=== PATIENT | female | born 1955 | race Caucasian/White ===

== ENCOUNTER 2020-05-20 10:43 | Emergency (ER) | payer OTHER ==
[2020-05-20 10:52] VITALS: BP 115/78; PULSE 96; TEMP 98; BMI 15.7
== END 2020-05-20 12:59 | disposition home or self-care (01) ==
LOC: JERFT 10:43
PROC: 2W3TX1Z Immobilization of Left Foot using Splint (ICD-10-PCS; principal; 2020-05-20)
DX: S82.392A Other fracture of lower end of left tibia, initial encounter for closed fracture (principal)
CPT/HCPCS: 73590-TC-LT-FY; 73610-TC-LT-FY; 73630-TC-LT; 99284-25

== ENCOUNTER 2020-05-22 10:52 | Inpatient (IN) | payer OTHER ==
[2020-05-22 10:58] VITALS: BMI 15.3
[2020-05-22 14:37] LABS: BASO % 0.9 % (0-2.0); EOS % 1.5 % (0-4.5); HEMATOCRIT 37.2 % (32.4-45.2); LYMPH % 19.9 % (8-40); MCH 35.4 pg (25.7-33.7); MCHC 34.9 g/dl (32.0-36.0); MEAN CELL VOLUME 101.4 fl (80-96); MEAN PLT VOLUME 8.1 fl (7.5-11.1); MONO % 7.3 % (3.8-10.2); NEUT % 70.4 % (42.8-82.8); PLATELET COUNT 185 K/MM3 (134-434); RBC 3.67 M/mm3 (3.60-5.2); RDW 14.6 % (11.6-15.6); WHITE BLOOD COUNT 6.7 K/mm3 (4.0-10.0)
[2020-05-22 14:56] LABS: CALCIUM 8.5 mg/dL (8.5-10.1)
[2020-05-22 14:57] LABS: ALBUMIN 2.7 g/dl (3.4-5.0); BLOOD UREA NITROGEN 12.4 mg/dL (7-18)
[2020-05-22 15:00] LABS: CREATININE 0.4 mg/dL (0.55-1.3)
[2020-05-22 15:01] LABS: BILIRUBIN,TOTAL 0.5 mg/dL (0.2-1); TOT PROT 5.4 g/dl (6.4-8.2)
[2020-05-22] MEDS ORDERED: POTASSIUM CHLORIDE TABS 10 MEQ TABLET.ER (FP) PO ONE (15:01)
[2020-05-22] MEDS ORDERED: POTASSIUM CHLORIDE TABS 10 MEQ TABLET.ER (FP) ONE (15:06)
[2020-05-22 16:45] LABS: MAGNESIUM 1.8 mg/dL (1.8-2.4)
[2020-05-22] MEDS ORDERED: MAGNESIUM OXIDE 400 MG TABLET (FP) PO ONE (19:58)
[2020-05-22] MEDS ORDERED: MAGNESIUM OXIDE 400 MG TABLET (FP) ONE (20:03)
[2020-05-22] MEDS: traZODone HCL 50 MG TABLET (FP) PO SCH (22:57)
[2020-05-23] MEDS ORDERED: ACETAMINOPHEN 1000 MG/100 ML VIAL (NON FORMULARY) IVPB PRN ×2 (02:32→12:27)
[2020-05-23] MEDS ORDERED: ACETAMINOPHEN 325 MG TABLET (FP) PO ONE (02:54)
[2020-05-23 08:07] LABS: HEMATOCRIT 38.5 % (32.4-45.2); HEMOGLOBIN 13.5 GM/dL (10.7-15.3); MCH 35.2 pg (25.7-33.7); MEAN CELL VOLUME 100.4 fl (80-96); MEAN PLT VOLUME 7.9 fl (7.5-11.1); PLATELET COUNT 198 K/MM3 (134-434); RBC 3.84 M/mm3 (3.60-5.2)
[2020-05-23 08:17] LABS: POTASSIUM 3.4 mmol/L (3.5-5.1)
[2020-05-23 08:19] LABS: BLOOD UREA NITROGEN 16.1 mg/dL (7-18); CALCIUM 8.3 mg/dL (8.5-10.1); MAGNESIUM 2.1 mg/dL (1.8-2.4)
[2020-05-23 08:22] LABS: CREATININE 0.4 mg/dL (0.55-1.3)
[2020-05-23 08:23] LABS: PHOSPHOROUS 3.3 mg/dL (2.5-4.9)
[2020-05-23] MEDS ORDERED: POTASSIUM CHLORIDE TABS 10 MEQ TABLET.ER (FP) PO ONE (08:30)
[2020-05-23] MEDS: amLODIPine BESYLATE 5 MG TABLET (FP) PO SCH (10:46)
[2020-05-23] MEDS: PARoxetine HCL 10 MG TABLET PO SCH (10:46)
[2020-05-23] MEDS: ENOXAPARIN NA (PORCINE) 40 MG/0.4 ML DISP.SYRIN SQ SCH (10:52)
[2020-05-23] MEDS: oxyCODONE HCL 5 MG TABLET PO PRN ×2 (17:38→22:21)
[2020-05-23] MEDS: traZODone HCL 50 MG TABLET (FP) PO SCH (21:25)
[2020-05-23] MEDS ORDERED: OXYBUTYNIN CHLORIDE 5 MG TABLET PO SCH (22:00)
[2020-05-24 07:33] LABS: BASO % 0.9 % (0-2.0); EOS % 4.9 % (0-4.5); HEMATOCRIT 38.5 % (32.4-45.2); HEMOGLOBIN 13.6 GM/dL (10.7-15.3); LYMPH % 31.4 % (8-40); MCH 36.1 pg (25.7-33.7); MCHC 35.3 g/dl (32.0-36.0); MEAN CELL VOLUME 102.2 fl (80-96); MEAN PLT VOLUME 7.8 fl (7.5-11.1); MONO % 10.2 % (3.8-10.2); NEUT % 52.6 % (42.8-82.8); PLATELET COUNT 193 K/MM3 (134-434); RBC 3.77 M/mm3 (3.60-5.2); WHITE BLOOD COUNT 4.6 K/mm3 (4.0-10.0)
[2020-05-24 07:58] LABS: CALCIUM 8.2 mg/dL (8.5-10.1)
[2020-05-24 07:59] LABS: ALBUMIN 2.6 g/dl (3.4-5.0); BLOOD UREA NITROGEN 13.3 mg/dL (7-18)
[2020-05-24 08:02] LABS: CREATININE 0.4 mg/dL (0.55-1.3)
[2020-05-24 08:03] LABS: BILIRUBIN,TOTAL 0.5 mg/dL (0.2-1); TOT PROT 5.5 g/dl (6.4-8.2)
[2020-05-24] MEDS: amLODIPine BESYLATE 5 MG TABLET (FP) PO SCH (09:39)
[2020-05-24] MEDS: oxyCODONE HCL 5 MG TABLET PO PRN (09:42)
[2020-05-24] MEDS ORDERED: CHOLECALCIFEROL (VIT D3) 1,000 UNIT (25 MCG) TABLET PO SCH (10:00)
[2020-05-24] MEDS: PARoxetine HCL 10 MG TABLET PO SCH (11:23)
[2020-05-24] MEDS: ENOXAPARIN NA (PORCINE) 40 MG/0.4 ML DISP.SYRIN SQ SCH (11:23)
[2020-05-24] MEDS ORDERED: MIDAZOLAM HCL 2 MG/2 ML SINGLE DOSE VIAL ONE ×3 (12:12→13:12)
[2020-05-24] MEDS ORDERED: ceFAZolin SODIUM 1 GM VIAL ONE ×2 (13:23→20:17)
[2020-05-24] MEDS ORDERED: ceFAZolin SODIUM 1 GM VIAL IVPB ONE (13:24)
[2020-05-24] MEDS ORDERED: LIDOCAINE HCL/PF 2% SDV 5ML VIAL ONE (13:26)
[2020-05-24] MEDS ORDERED: PROPOFOL 20 ML ONE (13:26)
[2020-05-24] MEDS ORDERED: DEXAMETHASONE SOD PHOSPHATE 4 MG/1 ML VIAL ONE (13:43)
[2020-05-24] MEDS ORDERED: ONDANSETRON 4 MG/2 ML VIAL IVPUSH PRN ×2 (14:31→15:12)
[2020-05-24] MEDS ORDERED: MORPHINE SULFATE 2 MG/ML VIAL IVPUSH PRN (14:35)
[2020-05-24] MEDS ORDERED: LACTATED RINGERS SOLUTION 1,000 ML IV SCH ×2 (14:45)
[2020-05-24] MEDS ORDERED: oxyCODONE HCL 5 MG TABLET PO PRN (15:12)
[2020-05-24] MEDS ORDERED: CEFAZOLIN 1 GM in DEXTROSE 5%-WATER - 50 ML IVPB SCH (18:00)
[2020-05-24] MEDS: LACTATED RINGERS SOLUTION 1,000 ML IV SCH (19:35)
[2020-05-24] MEDS ORDERED: DEXTROSE 5%-WATER - 50 ML IVPB ONE (20:17)
[2020-05-24] MEDS: traZODone HCL 50 MG TABLET (FP) PO SCH (20:57)
[2020-05-24] MEDS: CEFAZOLIN 1 GM in DEXTROSE 5%-WATER - 1 GM/50 ML IVPB IVPB SCH (20:59)
[2020-05-24] MEDS: MELATONIN 5 MG TABLETS PO PRN (20:59)
[2020-05-24] MEDS ORDERED: traZODone HCL 50 MG TABLET (FP) PO SCH (22:00)
[2020-05-25] MEDS ORDERED: ceFAZolin SODIUM 1 GM VIAL ONE (03:29)
[2020-05-25] MEDS ORDERED: DEXTROSE 5%-WATER - 50 ML IVPB ONE (03:30)
[2020-05-25] MEDS: CEFAZOLIN 1 GM in DEXTROSE 5%-WATER - 1 GM/50 ML IVPB IVPB SCH (05:03)
[2020-05-25] MEDS: MORPHINE SULFATE 2 MG/ML VIAL IVPUSH PRN ×2 (05:48→10:35)
[2020-05-25] MEDS ORDERED: PT OWN MED DRAWER 7, Y5N ONE (09:21)
[2020-05-25] MEDS: MULTIVIT-MINERALS ORAL LIQUID PO SCH (09:26)
[2020-05-25] MEDS: ENOXAPARIN NA (PORCINE) 40 MG/0.4 ML DISP.SYRIN SQ SCH (09:27)
[2020-05-25] MEDS: amLODIPine BESYLATE 5 MG TABLET (FP) PO SCH (09:27)
[2020-05-25] MEDS: CHOLECALCIFEROL (VIT D3) 1,000 UNIT (25 MCG) TABLET PO SCH (09:28)
[2020-05-25] MEDS: ACETAMINOPHEN 1000 MG/100 ML VIAL (NON FORMULARY) IVPB PRN ×2 (09:39→15:26)
[2020-05-25] MEDS ORDERED: PARoxetine HCL 10 MG TABLET PO SCH (10:00)
[2020-05-25 10:03] LABS: BASO % 0.7 % (0-2.0); EOS % 1.3 % (0-4.5); HEMOGLOBIN 11.2 GM/dL (10.7-15.3); MCH 35.5 pg (25.7-33.7); MEAN CELL VOLUME 101.3 fl (80-96); MEAN PLT VOLUME 7.6 fl (7.5-11.1); MONO % 10.2 % (3.8-10.2); NEUT % 68.8 % (42.8-82.8); PLATELET COUNT 188 K/MM3 (134-434); RBC 3.16 M/mm3 (3.60-5.2); RDW 14.6 % (11.6-15.6); WHITE BLOOD COUNT 6.2 K/mm3 (4.0-10.0)
[2020-05-25 11:03] LABS: CALCIUM 8.2 mg/dL (8.5-10.1)
[2020-05-25 11:04] LABS: ALBUMIN 2.3 g/dl (3.4-5.0); BLOOD UREA NITROGEN 11.1 mg/dL (7-18); MAGNESIUM 1.8 mg/dL (1.8-2.4)
[2020-05-25 11:06] LABS: CREATININE 0.5 mg/dL (0.55-1.3); PHOSPHOROUS 2.8 mg/dL (2.5-4.9)
[2020-05-25 11:08] LABS: TOT PROT 4.7 g/dl (6.4-8.2)
[2020-05-25 11:10] LABS: BILIRUBIN,TOTAL 0.5 mg/dL (0.2-1)
[2020-05-25 11:12] LABS: POTASSIUM 3.6 mmol/L (3.5-5.1)
[2020-05-25] MEDS: oxyCODONE HCL 5 MG TABLET PO PRN ×2 (15:25→20:36)
[2020-05-25] MEDS: ATORVASTATIN CA 20 MG TABLET (FP) PO SCH (20:35)
[2020-05-25] MEDS: PARoxetine HCL 20 MG TABLET PO SCH (20:35)
[2020-05-25] MEDS: ACETAMINOPHEN 325 MG TABLET (FP) PO PRN (20:37)
[2020-05-25] MEDS: LACTATED RINGERS SOLUTION 1,000 ML IV SCH (20:50)
[2020-05-25] MEDS: MELATONIN 5 MG TABLETS PO PRN (20:52)
[2020-05-25] MEDS: traZODone HCL 50 MG TABLET (FP) PO SCH (21:33)
[2020-05-26] MEDS: oxyCODONE HCL 5 MG TABLET PO PRN ×4 (04:08→23:05)
[2020-05-26] MEDS: ACETAMINOPHEN 325 MG TABLET (FP) PO PRN ×4 (04:09→23:06)
[2020-05-26 09:43] LABS: HEMATOCRIT 31.8 % (32.4-45.2); HEMOGLOBIN 11.2 GM/dL (10.7-15.3); MCH 35.7 pg (25.7-33.7); MCHC 35.1 g/dl (32.0-36.0); MEAN CELL VOLUME 101.7 fl (80-96); MEAN PLT VOLUME 7.4 fl (7.5-11.1); PLATELET COUNT 222 K/MM3 (134-434); RBC 3.13 M/mm3 (3.60-5.2); RDW 14.8 % (11.6-15.6)
[2020-05-26 10:04] LABS: POTASSIUM 3.9 mmol/L (3.5-5.1)
[2020-05-26 10:12] LABS: BLOOD UREA NITROGEN 9.8 mg/dL (7-18); CALCIUM 8.1 mg/dL (8.5-10.1)
[2020-05-26 10:13] LABS: ALBUMIN 2.3 g/dl (3.4-5.0); MAGNESIUM 1.8 mg/dL (1.8-2.4)
[2020-05-26 10:16] LABS: CREATININE 0.4 mg/dL (0.55-1.3); PHOSPHOROUS 3.5 mg/dL (2.5-4.9)
[2020-05-26 10:18] LABS: TOT PROT 4.7 g/dl (6.4-8.2)
[2020-05-26] MEDS: amLODIPine BESYLATE 5 MG TABLET (FP) PO SCH (10:21)
[2020-05-26] MEDS: PARoxetine HCL 20 MG TABLET PO SCH (10:21)
[2020-05-26] MEDS: DOCUSATE SODIUM 100 MG CAPSULE (FP) PO SCH ×2 (10:21→21:37)
[2020-05-26] MEDS: ENOXAPARIN NA (PORCINE) 40 MG/0.4 ML DISP.SYRIN SQ SCH (10:21)
[2020-05-26] MEDS: ATORVASTATIN CA 20 MG TABLET (FP) PO SCH (10:22)
[2020-05-26] MEDS: MULTIVIT-MINERALS ORAL LIQUID PO SCH (10:22)
[2020-05-26] MEDS: POLYETHYLENE GLYCOL 3350 119 GM BTL PO SCH (10:22)
[2020-05-26] MEDS: CHOLECALCIFEROL (VIT D3) 1,000 UNIT (25 MCG) TABLET PO SCH (10:22)
[2020-05-26 10:23] LABS: BILIRUBIN,TOTAL 0.4 mg/dL (0.2-1)
[2020-05-26] MEDS: LACTATED RINGERS SOLUTION 1,000 ML IV SCH (10:23)
[2020-05-26] MEDS: traZODone HCL 50 MG TABLET (FP) PO SCH (21:36)
[2020-05-26] MEDS: MELATONIN 5 MG TABLETS PO PRN (21:37)
[2020-05-27 08:11] LABS: BASO % 1.1 % (0-2.0); EOS % 4.5 % (0-4.5); HEMATOCRIT 33.4 % (32.4-45.2); HEMOGLOBIN 11.7 GM/dL (10.7-15.3); LYMPH % 19.6 % (8-40); MCH 35.6 pg (25.7-33.7); MCHC 34.9 g/dl (32.0-36.0); MEAN PLT VOLUME 7.8 fl (7.5-11.1); MONO % 11.5 % (3.8-10.2); NEUT % 63.3 % (42.8-82.8); PLATELET COUNT 249 K/MM3 (134-434); RBC 3.27 M/mm3 (3.60-5.2); RDW 14.9 % (11.6-15.6)
[2020-05-27 08:24] LABS: POTASSIUM 4.4 mmol/L (3.5-5.1)
[2020-05-27 08:33] LABS: ALBUMIN 2.4 g/dl (3.4-5.0); CALCIUM 8.4 mg/dL (8.5-10.1)
[2020-05-27 08:34] LABS: BLOOD UREA NITROGEN 8.8 mg/dL (7-18)
[2020-05-27 08:37] LABS: CREATININE 0.3 mg/dL (0.55-1.3)
[2020-05-27 08:38] LABS: BILIRUBIN,TOTAL 0.5 mg/dL (0.2-1); TOT PROT 5.2 g/dl (6.4-8.2)
[2020-05-27] MEDS: oxyCODONE HCL 5 MG TABLET PO PRN ×2 (09:15→17:00)
[2020-05-27] MEDS: ACETAMINOPHEN 325 MG TABLET (FP) PO PRN ×2 (09:15→17:00)
[2020-05-27] MEDS: ENOXAPARIN NA (PORCINE) 40 MG/0.4 ML DISP.SYRIN SQ SCH (10:16)
[2020-05-27] MEDS: amLODIPine BESYLATE 5 MG TABLET (FP) PO SCH (10:17)
[2020-05-27] MEDS: PARoxetine HCL 20 MG TABLET PO SCH (10:17)
[2020-05-27] MEDS: ATORVASTATIN CA 20 MG TABLET (FP) PO SCH (10:17)
[2020-05-27] MEDS: MULTIVIT-MINERALS ORAL LIQUID PO SCH (10:17)
[2020-05-27] MEDS: DOCUSATE SODIUM 100 MG CAPSULE (FP) PO SCH ×2 (10:18→22:39)
[2020-05-27] MEDS: CHOLECALCIFEROL (VIT D3) 1,000 UNIT (25 MCG) TABLET PO SCH (10:18)
[2020-05-27] MEDS: POLYETHYLENE GLYCOL 3350 119 GM BTL PO SCH (11:20)
[2020-05-27] MEDS: MELATONIN 5 MG TABLETS PO PRN (22:38)
[2020-05-27] MEDS: traZODone HCL 50 MG TABLET (FP) PO SCH (22:38)
[2020-05-28] MEDS: oxyCODONE HCL 5 MG TABLET PO PRN ×4 (03:03→21:41)
[2020-05-28] MEDS: DOCUSATE SODIUM 100 MG CAPSULE (FP) PO SCH ×2 (09:09→21:43)
[2020-05-28] MEDS: ATORVASTATIN CA 20 MG TABLET (FP) PO SCH (09:38)
[2020-05-28] MEDS: PARoxetine HCL 20 MG TABLET PO SCH (09:38)
[2020-05-28] MEDS: CHOLECALCIFEROL (VIT D3) 1,000 UNIT (25 MCG) TABLET PO SCH (09:39)
[2020-05-28] MEDS: ENOXAPARIN NA (PORCINE) 40 MG/0.4 ML DISP.SYRIN SQ SCH (10:24)
[2020-05-28] MEDS: POLYETHYLENE GLYCOL 3350 119 GM BTL PO SCH (10:25)
[2020-05-28] MEDS ORDERED: PT OWN MED DRAWER 7, Y5N ONE (10:29)
[2020-05-28] MEDS: MULTIVIT-MINERALS ORAL LIQUID PO SCH (10:31)
[2020-05-28] MEDS: amLODIPine BESYLATE 5 MG TABLET (FP) PO SCH (13:54)
[2020-05-28] MEDS: traZODone HCL 50 MG TABLET (FP) PO SCH (21:43)
[2020-05-28] MEDS: MELATONIN 5 MG TABLETS PO PRN (22:18)
[2020-05-29] MEDS: oxyCODONE HCL 5 MG TABLET PO PRN ×3 (04:45→18:14)
[2020-05-29] MEDS ORDERED: PT OWN MED DRAWER 7, Y5N ONE (08:35)
[2020-05-29] MEDS: ATORVASTATIN CA 20 MG TABLET (FP) PO SCH (09:29)
[2020-05-29] MEDS: DOCUSATE SODIUM 100 MG CAPSULE (FP) PO SCH ×2 (09:29→21:22)
[2020-05-29] MEDS: PARoxetine HCL 20 MG TABLET PO SCH (09:30)
[2020-05-29] MEDS: ENOXAPARIN NA (PORCINE) 40 MG/0.4 ML DISP.SYRIN SQ SCH (09:30)
[2020-05-29] MEDS: amLODIPine BESYLATE 5 MG TABLET (FP) PO SCH (09:30)
[2020-05-29] MEDS: CHOLECALCIFEROL (VIT D3) 1,000 UNIT (25 MCG) TABLET PO SCH (09:31)
[2020-05-29] MEDS: MULTIVIT-MINERALS ORAL LIQUID PO SCH (09:31)
[2020-05-29] MEDS: POLYETHYLENE GLYCOL 3350 119 GM BTL PO SCH (09:36)
[2020-05-29 12:26] LABS: HEMATOCRIT 34.1 % (32.4-45.2); HEMOGLOBIN 11.7 GM/dL (10.7-15.3); MCH 34.8 pg (25.7-33.7); MCHC 34.4 g/dl (32.0-36.0); MEAN CELL VOLUME 101.3 fl (80-96); PLATELET COUNT 423 K/MM3 (134-434); RBC 3.37 M/mm3 (3.60-5.2); RDW 14.7 % (11.6-15.6); WHITE BLOOD COUNT 6.4 K/mm3 (4.0-10.0)
[2020-05-29 12:47] LABS: POTASSIUM 4.1 mmol/L (3.5-5.1)
[2020-05-29 12:52] LABS: CALCIUM 8.3 mg/dL (8.5-10.1)
[2020-05-29 12:53] LABS: MAGNESIUM 1.8 mg/dL (1.8-2.4)
[2020-05-29 12:56] LABS: CREATININE 0.4 mg/dL (0.55-1.3); PHOSPHOROUS 4.2 mg/dL (2.5-4.9)
[2020-05-29] MEDS: MELATONIN 5 MG TABLETS PO PRN (21:20)
[2020-05-29] MEDS: traZODone HCL 50 MG TABLET (FP) PO SCH (21:20)
[2020-05-30] MEDS: oxyCODONE HCL 5 MG TABLET PO PRN ×3 (03:51→21:30)
[2020-05-30] MEDS ORDERED: PT OWN MED DRAWER 7, Y5N ONE (11:10)
[2020-05-30] MEDS: PARoxetine HCL 20 MG TABLET PO SCH (11:13)
[2020-05-30] MEDS: MULTIVIT-MINERALS ORAL LIQUID PO SCH (11:13)
[2020-05-30] MEDS: DOCUSATE SODIUM 100 MG CAPSULE (FP) PO SCH ×2 (11:13→21:31)
[2020-05-30] MEDS: ENOXAPARIN NA (PORCINE) 40 MG/0.4 ML DISP.SYRIN SQ SCH (11:14)
[2020-05-30] MEDS: amLODIPine BESYLATE 5 MG TABLET (FP) PO SCH (11:14)
[2020-05-30] MEDS: ATORVASTATIN CA 20 MG TABLET (FP) PO SCH (11:14)
[2020-05-30] MEDS: CHOLECALCIFEROL (VIT D3) 1,000 UNIT (25 MCG) TABLET PO SCH (11:15)
[2020-05-30] MEDS: POLYETHYLENE GLYCOL 3350 119 GM BTL PO SCH (11:15)
[2020-05-30] MEDS: MELATONIN 5 MG TABLETS PO PRN (21:29)
[2020-05-30] MEDS: traZODone HCL 50 MG TABLET (FP) PO SCH (21:30)
[2020-05-31] MEDS: oxyCODONE HCL 5 MG TABLET PO PRN (06:17)
[2020-05-31 08:09] LABS: BASO % 0.9 % (0-2.0); EOS % 3.7 % (0-4.5); HEMATOCRIT 33.2 % (32.4-45.2); HEMOGLOBIN 11.7 GM/dL (10.7-15.3); LYMPH % 19.4 % (8-40); MCH 35.3 pg (25.7-33.7); MCHC 35.3 g/dl (32.0-36.0); MEAN CELL VOLUME 100.1 fl (80-96); MEAN PLT VOLUME 7.3 fl (7.5-11.1); MONO % 12.1 % (3.8-10.2); NEUT % 63.9 % (42.8-82.8); PLATELET COUNT 472 K/MM3 (134-434); RBC 3.32 M/mm3 (3.60-5.2); RDW 14.7 % (11.6-15.6); WHITE BLOOD COUNT 6.4 K/mm3 (4.0-10.0)
[2020-05-31 08:32] LABS: POTASSIUM 4.6 mmol/L (3.5-5.1)
[2020-05-31 08:48] LABS: ALBUMIN 2.6 g/dl (3.4-5.0); BLOOD UREA NITROGEN 12.7 mg/dL (7-18)
[2020-05-31 08:52] LABS: CREATININE 0.4 mg/dL (0.55-1.3)
[2020-05-31 08:53] LABS: BILIRUBIN,TOTAL 0.6 mg/dL (0.2-1); TOT PROT 5.4 g/dl (6.4-8.2)
[2020-05-31] MEDS ORDERED: PT OWN MED DRAWER 7, Y5N ONE (09:31)
[2020-05-31] MEDS: MULTIVIT-MINERALS ORAL LIQUID PO SCH (09:42)
[2020-05-31] MEDS: ATORVASTATIN CA 20 MG TABLET (FP) PO SCH (09:43)
[2020-05-31] MEDS: PARoxetine HCL 20 MG TABLET PO SCH (09:43)
[2020-05-31] MEDS: DOCUSATE SODIUM 100 MG CAPSULE (FP) PO SCH ×2 (09:43→21:21)
[2020-05-31] MEDS: amLODIPine BESYLATE 5 MG TABLET (FP) PO SCH (09:44)
[2020-05-31] MEDS: CHOLECALCIFEROL (VIT D3) 1,000 UNIT (25 MCG) TABLET PO SCH (09:44)
[2020-05-31] MEDS: ENOXAPARIN NA (PORCINE) 40 MG/0.4 ML DISP.SYRIN SQ SCH (09:44)
[2020-05-31] MEDS: POLYETHYLENE GLYCOL 3350 119 GM BTL PO SCH (12:52)
[2020-05-31] MEDS: ACETAMINOPHEN 325 MG TABLET (FP) PO PRN (13:08)
[2020-05-31] MEDS ORDERED: ACETAMINOPHEN 325 MG TABLET (FP) PO PRN (14:16)
[2020-05-31] MEDS: traZODone HCL 50 MG TABLET (FP) PO SCH ×2 (20:27→21:21)
[2020-05-31] MEDS: MELATONIN 5 MG TABLETS PO PRN (20:28)
[2020-05-31 20:39] VITALS: BP 141/75; PULSE 71; TEMP 98
== END 2020-06-01 00:53 | DRG 492 ==
LOC: JER 10:52 → OBSVTOIN 16:21 → JERBED 16:21 → J7W 05-23 01:59
PROVIDERS: ADMIT Internal Medicine; ATTEND Internal Medicine
PROC: 0QSK06Z Reposition Left Fibula with Intramedullary Internal Fixation Device, Open Approach (ICD-10-PCS; 2020-05-24)
PROC: 0QSH06Z Reposition Left Tibia with Intramedullary Internal Fixation Device, Open Approach (ICD-10-PCS; principal; 2020-05-24 13:00)
DX: S82.392A Other fracture of lower end of left tibia, initial encounter for closed fracture (principal); E43 Unspecified severe protein-calorie malnutrition; Z68.1 Body mass index [BMI] 19.9 or less, adult; S82.492A Other fracture of shaft of left fibula, initial encounter for closed fracture; I10 Essential (primary) hypertension; E78.5 Hyperlipidemia, unspecified; I65.29 Occlusion and stenosis of unspecified carotid artery; E87.6 Hypokalemia; F41.8 Other specified anxiety disorders; R94.31 Abnormal electrocardiogram [ECG] [EKG]; W18.30XA Fall on same level, unspecified, initial encounter; Y92.090 Kitchen in other non-institutional residence as the place of occurrence of the external cause
CPT/HCPCS: 36415; 71045-TC-FY; 76000-TC-FY; 80048; 80053; 82607; 82746; 83735; 84100; 84443; 85025; 85027; 86682; 93005; 93010; 94010; 94760; 97116-GP; 97161-GP; 99285-25; C9803; J0131; U0003

== ENCOUNTER 2020-07-24 04:21 | Day surgery (SDC) | payer OTHER ==
[2020-07-22 13:55] VITALS: BMI 15.7
[2020-07-24] MEDS ORDERED: PROPOFOL 20 ML ONE (09:29)
[2020-07-24] MEDS ORDERED: LIDOCAINE HCL/PF 2% SDV 5ML VIAL ONE (09:29)
[2020-07-24] MEDS ORDERED: DEXAMETHASONE SOD PHOSPHATE 4 MG/1 ML VIAL ONE (09:29)
[2020-07-24] MEDS ORDERED: MIDAZOLAM HCL 2 MG/2 ML SINGLE DOSE VIAL ONE (09:29)
[2020-07-24] MEDS ORDERED: ceFAZolin SODIUM 1 GM VIAL ONE (09:50)
[2020-07-24] MEDS ORDERED: oxyCODONE HCL 5 MG TABLET PO PRN (09:52)
[2020-07-24] MEDS ORDERED: ONDANSETRON 4 MG/2 ML VIAL IVPUSH PRN (09:52)
[2020-07-24] MEDS ORDERED: ceFAZolin 2 GRAM PREMIX BAG IVPB ONE (09:53)
[2020-07-24] MEDS ORDERED: EPHEDRINE SULFATE/0.9% NACL/PF 50 MG/10 ML SYRINGE NR ONE (10:08)
[2020-07-24 13:35] VITALS: PULSE 88
[2020-07-24 13:41] VITALS: TEMP 97.9
[2020-07-24 13:45] VITALS: BP 130/78
== END 2020-07-24 13:30 | disposition home or self-care (01) ==
LOC: JASU-SURG 04:21
PROVIDERS: ATTEND Orthopaedic Surgery
PROC: 0QUH07Z Supplement Left Tibia with Autologous Tissue Substitute, Open Approach (ICD-10-PCS; 2020-07-24)
PROC: 0QPH04Z Removal of Internal Fixation Device from Left Tibia, Open Approach (ICD-10-PCS; principal; 2020-07-24 09:00)
DX: S82.392G Other fracture of lower end of left tibia, subsequent encounter for closed fracture with delayed healing (principal); X58.XXXD Exposure to other specified factors, subsequent encounter
CPT/HCPCS: 76000-TC-FY; 88300-TC; 94760

== ENCOUNTER 2020-10-23 14:07 | Inpatient (IN) | payer OTHER ==
[2020-10-23] MEDS ORDERED: ALBUTEROL SO4 HFA INHALER IH ONE ×2 (16:32→17:02)
[2020-10-23 16:59] LABS: BASO % 0.5 % (0-2.0); EOS % 0.2 % (0-4.5); HEMATOCRIT 41.9 % (32.4-45.2); HEMOGLOBIN 14.5 GM/dL (10.7-15.3); LYMPH % 19.2 % (8-40); MCHC 34.6 g/dl (32.0-36.0); MEAN CELL VOLUME 101.2 fl (80-96); MEAN PLT VOLUME 8.2 fl (7.5-11.1); MONO % 7.4 % (3.8-10.2); NEUT % 72.7 % (42.8-82.8); PLATELET COUNT 188 10^3/uL (134-434); RBC 4.14 M/mm3 (3.60-5.2); RDW 14.1 % (11.6-15.6); WHITE BLOOD COUNT 6.9 K/mm3 (4.0-10.0)
[2020-10-23 17:06] LABS: INR 0.78 (0.83-1.09); PROTHROMBIN TIME (PATIENT) 9.5 SEC (9.7-13.0)
[2020-10-23 17:08] LABS: ACTIVATED PTT 32.5 SECONDS (25.2-36.5)
[2020-10-23 17:11] LABS: CHLORIDE 97 mmol/L (98-107); SODIUM 135 mmol/L (136-145)
[2020-10-23 17:13] LABS: BLOOD UREA NITROGEN 21.5 mg/dL (7-18); CALCIUM 8.8 mg/dL (8.5-10.1)
[2020-10-23 17:14] LABS: ALBUMIN 3.4 g/dl (3.4-5.0); ANION GAP 18 MMOL/L (8-16); CO2 19 mmol/L (21-32); GLUCOSE,RANDOM 85 mg/dL (74-106); LIPASE 135 U/L (73-393); MAGNESIUM 2.1 mg/dL (1.8-2.4)
[2020-10-23 17:16] LABS: SGOT/AST 36 U/L (15-37); SGPT/ALT 63 U/L (13-61)
[2020-10-23] MEDS ORDERED: POTASSIUM CHLORIDE ORAL LIQUID 20 MEQ/15 ML PO ONE (17:16)
[2020-10-23 17:17] LABS: CREATININE 0.6 mg/dL (0.55-1.3); PHOSPHOROUS 1.8 mg/dL (2.5-4.9)
[2020-10-23 17:18] LABS: TOT PROT 6.1 g/dl (6.4-8.2)
[2020-10-23 17:19] LABS: ALK PHOS 101 U/L (45-117)
[2020-10-23] MEDS ORDERED: POTASSIUM CHLORIDE ORAL LIQUID 20 MEQ/15 ML ONE (17:29)
[2020-10-23] MEDS ORDERED: SODIUM CHLORIDE 1,000 ML IV SCH (19:30)
[2020-10-23] MEDS ORDERED: MAGNESIUM 2GM/50ML STERILE WATER IVPB IVPB ONE (19:31)
[2020-10-23] MEDS ORDERED: MAG HYDROX/AL HYDROX/SIMETH 30 ML UNIT-DOSE CUP PO PRN (19:35)
[2020-10-23] MEDS ORDERED: POTASSIUM PHOSPHATE 30 MM in SODIUM CHLORIDE 500 ML IVPB ONE (20:00)
[2020-10-23] MEDS ORDERED: ATORVASTATIN CA 20 MG TABLET (FP) PO ONE (20:36)
[2020-10-23] MEDS ORDERED: traZODone HCL 50 MG TABLET (FP) PO ONE (23:36)
[2020-10-23] MEDS: PANTOPRAZOLE 20 MG TABLET PO SCH (23:39)
[2020-10-23] MEDS: MULTIVITAMINS (DAILY MVI) TABLET (FP) PO SCH (23:40)
[2020-10-23] MEDS: ENOXAPARIN NA (PORCINE) 40 MG/0.4 ML DISP.SYRIN SQ SCH (23:40)
[2020-10-24 00:55] VITALS: BMI 14.3
[2020-10-24 06:58] LABS: BASO % 0.8 % (0-2.0); HEMATOCRIT 37.9 % (32.4-45.2); HEMOGLOBIN 13.1 GM/dL (10.7-15.3); LYMPH % 30.2 % (8-40); MCH 35.1 pg (25.7-33.7); MCHC 34.4 g/dl (32.0-36.0); MEAN CELL VOLUME 101.9 fl (80-96); MEAN PLT VOLUME 7.9 fl (7.5-11.1); MONO % 8.2 % (3.8-10.2); NEUT % 59.8 % (42.8-82.8); PLATELET COUNT 156 10^3/uL (134-434); RBC 3.72 M/mm3 (3.60-5.2); RDW 14.3 % (11.6-15.6); WHITE BLOOD COUNT 5.9 K/mm3 (4.0-10.0)
[2020-10-24 07:22] LABS: ALBUMIN 2.9 g/dl (3.4-5.0); BLOOD UREA NITROGEN 21.4 mg/dL (7-18)
[2020-10-24 07:25] LABS: CREATININE 0.5 mg/dL (0.55-1.3)
[2020-10-24 07:26] LABS: BILIRUBIN,TOTAL 0.7 mg/dL (0.2-1); PHOSPHOROUS 4.1 mg/dL (2.5-4.9); TOT PROT 5.3 g/dl (6.4-8.2)
[2020-10-24] MEDS: PANTOPRAZOLE 20 MG TABLET PO SCH (10:11)
[2020-10-24] MEDS: ENOXAPARIN NA (PORCINE) 40 MG/0.4 ML DISP.SYRIN SQ SCH (10:11)
[2020-10-24] MEDS: MULTIVITAMINS (DAILY MVI) TABLET (FP) PO SCH (10:11)
[2020-10-24] MEDS: NICOTINE 14 MG/24 HOURS TOPICAL PATCH TD SCH (12:26)
[2020-10-24] MEDS ORDERED: ACETAMINOPHEN WITH CODEINE 300MG/30MG TABLET PO ONE (15:00)
[2020-10-24] MEDS ORDERED: MULTIVIT IV SCH (18:00)
[2020-10-24] MEDS ORDERED: SODIUM CHLORIDE IV SCH (18:00)
[2020-10-24] MEDS ORDERED: [UNRECOGNIZED DRUG - OTHER] IV SCH (18:00)
[2020-10-24 19:26] LABS: URINE APPEARANCE CLEAR; URINE COLOR DK YELLOW
[2020-10-24 19:27] LABS: PH,URINE 6.5 (5.0-8.0); URINE BILIRUBIN MODERATE (NEGATIVE); URINE GLUCOSE (UA) NEGATIVE (NEGATIVE); URINE KETONE 15 mg/dl (NEGATIVE); URINE LEUK ESTERASE NEGATIVE (NEGATIVE); URINE NITRITE NEGATIVE (NEGATIVE); URINE PROTEIN 30 (NEGATIVE)
[2020-10-24 20:03] LABS: URINE AMPHETAMINES NEGATIVE (NEGATIVE); URINE BARBITURATES NEGATIVE (NEGATIVE)
[2020-10-24 20:04] LABS: COCAINE, UR NEGATIVE (NEGATIVE); METHADONE, UR NEGATIVE (NEGATIVE); PHENCYCLIDINE,URINE NEGATIVE (NEGATIVE); URINE BENZODIAZEPINES NEGATIVE (NEGATIVE)
[2020-10-24 20:12] LABS: OPIATES, URI POSITIVE (NEGATIVE)
[2020-10-24] MEDS ORDERED: MELATONIN 5 MG TABLETS PO ONE (21:01)
[2020-10-25] MEDS ORDERED: ACETAMINOPHEN 325 MG TABLET (FP) ONE (02:19)
[2020-10-25] MEDS: ACETAMINOPHEN 325 MG TABLET (FP) PO ONE ×2 (02:24→07:35)
[2020-10-25 07:21] LABS: BASO % 0.7 % (0-2.0); EOS % 1.5 % (0-4.5); HEMATOCRIT 32.7 % (32.4-45.2); HEMOGLOBIN 11.3 GM/dL (10.7-15.3); LYMPH % 34.2 % (8-40); MCH 35.2 pg (25.7-33.7); MCHC 34.5 g/dl (32.0-36.0); MEAN CELL VOLUME 101.9 fl (80-96); MEAN PLT VOLUME 8.3 fl (7.5-11.1); MONO % 9.7 % (3.8-10.2); NEUT % 53.9 % (42.8-82.8); PLATELET COUNT 118 10^3/uL (134-434); RBC 3.21 M/mm3 (3.60-5.2); RDW 14.3 % (11.6-15.6); WHITE BLOOD COUNT 3.6 K/mm3 (4.0-10.0)
[2020-10-25 07:43] LABS: ALBUMIN 2.5 g/dl (3.4-5.0); CALCIUM 8.1 mg/dL (8.5-10.1)
[2020-10-25 07:44] LABS: BLOOD UREA NITROGEN 18.6 mg/dL (7-18); MAGNESIUM 1.7 mg/dL (1.8-2.4)
[2020-10-25 07:47] LABS: CREATININE 0.3 mg/dL (0.55-1.3); PHOSPHOROUS 1.4 mg/dL (2.5-4.9)
[2020-10-25 07:48] LABS: BILIRUBIN,TOTAL 0.4 mg/dL (0.2-1); TOT PROT 4.5 g/dl (6.4-8.2)
[2020-10-25] MEDS ORDERED: PT OWN MED DRAWER 7, Y5N ONE ×2 (08:26→10:18)
[2020-10-25] MEDS ORDERED: DEXTROSE 5% IVPB ONE (09:00)
[2020-10-25] MEDS ORDERED: WATER IVPB ONE (09:00)
[2020-10-25] MEDS ORDERED: POTASSIUM PHOSPHATE IVPB ONE (09:00)
[2020-10-25] MEDS ORDERED: MAGNESIUM SULFATE IVPB ONE (09:00)
[2020-10-25] MEDS: PANTOPRAZOLE 20 MG TABLET PO SCH (09:33)
[2020-10-25] MEDS: PARoxetine HCL 20 MG TABLET PO SCH (09:33)
[2020-10-25] MEDS: NICOTINE 14 MG/24 HOURS TOPICAL PATCH TD SCH (09:33)
[2020-10-25] MEDS: MULTIVITAMINS (DAILY MVI) TABLET (FP) PO SCH (09:34)
[2020-10-25] MEDS: ENOXAPARIN NA (PORCINE) 40 MG/0.4 ML DISP.SYRIN SQ SCH (09:34)
[2020-10-25] MEDS: THIAMINE HCL 200 MG/2 ML VIAL IVPB SCH (12:18)
[2020-10-25] MEDS ORDERED: MELATONIN 5 MG TABLETS PO ONE (19:40)
[2020-10-25] MEDS: ATORVASTATIN CA 20 MG TABLET (FP) PO SCH (21:25)
[2020-10-26] MEDS: ACETAMINOPHEN 325 MG TABLET (FP) PO PRN ×2 (06:54→14:04)
[2020-10-26 08:19] LABS: ALBUMIN 2.5 g/dl (3.4-5.0); CALCIUM 8.1 mg/dL (8.5-10.1)
[2020-10-26 08:20] LABS: BLOOD UREA NITROGEN 14.6 mg/dL (7-18)
[2020-10-26 08:23] LABS: CREATININE 0.3 mg/dL (0.55-1.3); PHOSPHOROUS 2.4 mg/dL (2.5-4.9)
[2020-10-26 08:24] LABS: BILIRUBIN,TOTAL 0.5 mg/dL (0.2-1); TOT PROT 4.8 g/dl (6.4-8.2)
[2020-10-26 09:25] LABS: BASO % 0.7 % (0-2.0); EOS % 1.8 % (0-4.5); HEMATOCRIT 32.7 % (32.4-45.2); HEMOGLOBIN 11.4 GM/dL (10.7-15.3); LYMPH % 26.2 % (8-40); MCH 35.4 pg (25.7-33.7); MCHC 34.7 g/dl (32.0-36.0); MEAN CELL VOLUME 101.8 fl (80-96); MEAN PLT VOLUME 7.7 fl (7.5-11.1); MONO % 10.4 % (3.8-10.2); NEUT % 60.9 % (42.8-82.8); PLATELET COUNT 141 10^3/uL (134-434); RBC 3.21 M/mm3 (3.60-5.2); WHITE BLOOD COUNT 4.2 K/mm3 (4.0-10.0)
[2020-10-26] MEDS ORDERED: PARoxetine HCL 10 MG TABLET ONE (09:33)
[2020-10-26] MEDS ORDERED: PT OWN MED DRAWER 7, Y5N ONE (09:35)
[2020-10-26] MEDS: NICOTINE 14 MG/24 HOURS TOPICAL PATCH TD SCH (10:08)
[2020-10-26] MEDS: PARoxetine HCL 20 MG TABLET PO SCH (10:08)
[2020-10-26] MEDS: ENOXAPARIN NA (PORCINE) 40 MG/0.4 ML DISP.SYRIN SQ SCH (10:08)
[2020-10-26] MEDS: MULTIVITAMINS (DAILY MVI) TABLET (FP) PO SCH (10:09)
[2020-10-26] MEDS: FLUTICASONE/UMECLIDIN/VILANTER (TRELEGY ELLIPTA 100-62.5-25) INAHLER IH SCH (10:09)
[2020-10-26] MEDS: NAPH,MB-DB/K PH,MBDB POWDER PACKET PO SCH ×2 (10:09→21:13)
[2020-10-26] MEDS: PANTOPRAZOLE 20 MG TABLET PO SCH (10:09)
[2020-10-26] MEDS: THIAMINE HCL 200 MG/2 ML VIAL IVPB SCH (10:10)
[2020-10-26] MEDS: ZINC OXIDE 20% TOPICAL OINTMENT 30 GM TUBE TP SCH ×2 (11:23→21:14)
[2020-10-26] MEDS: FAMOTIDINE 20 MG/50 ML IVPB 20 MG/50 ML MG IVPB SCH (21:13)
[2020-10-26] MEDS: ATORVASTATIN CA 20 MG TABLET (FP) PO SCH (21:14)
[2020-10-26] MEDS: MELATONIN 5 MG TABLETS PO SCH (21:14)
[2020-10-27] MEDS ORDERED: PARoxetine HCL 10 MG TABLET ONE (09:59)
[2020-10-27 10:02] LABS: BASO % 0.6 % (0-2.0); EOS % 2.2 % (0-4.5); HEMATOCRIT 36.3 % (32.4-45.2); HEMOGLOBIN 12.3 GM/dL (10.7-15.3); LYMPH % 19.5 % (8-40); MCH 34.9 pg (25.7-33.7); MCHC 33.8 g/dl (32.0-36.0); MEAN CELL VOLUME 103.3 fl (80-96); MEAN PLT VOLUME 8.3 fl (7.5-11.1); MONO % 11.8 % (3.8-10.2); NEUT % 65.9 % (42.8-82.8); PLATELET COUNT 198 10^3/uL (134-434); RBC 3.51 M/mm3 (3.60-5.2); RDW 14.4 % (11.6-15.6); WHITE BLOOD COUNT 5.7 K/mm3 (4.0-10.0)
[2020-10-27] MEDS: NICOTINE 14 MG/24 HOURS TOPICAL PATCH TD SCH (10:16)
[2020-10-27] MEDS: FAMOTIDINE 20 MG/50 ML IVPB 20 MG/50 ML MG IVPB SCH ×2 (10:16→21:25)
[2020-10-27] MEDS: ENOXAPARIN NA (PORCINE) 40 MG/0.4 ML DISP.SYRIN SQ SCH (10:16)
[2020-10-27] MEDS: THIAMINE HCL 200 MG/2 ML VIAL IVPB SCH (10:17)
[2020-10-27] MEDS: PARoxetine HCL 20 MG TABLET PO SCH (10:17)
[2020-10-27] MEDS: NAPH,MB-DB/K PH,MBDB POWDER PACKET PO SCH (10:17)
[2020-10-27] MEDS: MULTIVITAMINS (DAILY MVI) TABLET (FP) PO SCH (10:17)
[2020-10-27] MEDS: FLUTICASONE/UMECLIDIN/VILANTER (TRELEGY ELLIPTA 100-62.5-25) INAHLER IH SCH (10:18)
[2020-10-27] MEDS: ZINC OXIDE 20% TOPICAL OINTMENT 30 GM TUBE TP SCH ×2 (10:21→21:26)
[2020-10-27 10:23] LABS: CALCIUM 8.4 mg/dL (8.5-10.1)
[2020-10-27 10:24] LABS: ALBUMIN 2.8 g/dl (3.4-5.0); BLOOD UREA NITROGEN 13.3 mg/dL (7-18)
[2020-10-27 10:27] LABS: CREATININE 0.3 mg/dL (0.55-1.3); PHOSPHOROUS 2.5 mg/dL (2.5-4.9)
[2020-10-27 10:29] LABS: BILIRUBIN,TOTAL 0.2 mg/dL (0.2-1); TOT PROT 5.4 g/dl (6.4-8.2)
[2020-10-27] MEDS: ATORVASTATIN CA 20 MG TABLET (FP) PO SCH (21:25)
[2020-10-27] MEDS: MELATONIN 5 MG TABLETS PO SCH (21:26)
[2020-10-27] MEDS: ACETAMINOPHEN 325 MG TABLET (FP) PO PRN (22:57)
[2020-10-28 07:41] LABS: CALCIUM 8.5 mg/dL (8.5-10.1)
[2020-10-28 07:42] LABS: ALBUMIN 2.6 g/dl (3.4-5.0); BLOOD UREA NITROGEN 17.2 mg/dL (7-18)
[2020-10-28 07:43] LABS: BILIRUBIN,TOTAL 0.2 mg/dL (0.2-1)
[2020-10-28 07:45] LABS: CREATININE 0.3 mg/dL (0.55-1.3)
[2020-10-28] MEDS ORDERED: PARoxetine HCL 10 MG TABLET ONE (09:46)
[2020-10-28 09:47] VITALS: TEMP 98.4
[2020-10-28] MEDS: MULTIVITAMINS (DAILY MVI) TABLET (FP) PO SCH (09:50)
[2020-10-28] MEDS: FAMOTIDINE 20 MG/50 ML IVPB 20 MG/50 ML MG IVPB SCH (09:50)
[2020-10-28] MEDS: PARoxetine HCL 20 MG TABLET PO SCH (09:50)
[2020-10-28] MEDS: ENOXAPARIN NA (PORCINE) 40 MG/0.4 ML DISP.SYRIN SQ SCH (09:50)
[2020-10-28] MEDS: ZINC OXIDE 20% TOPICAL OINTMENT 30 GM TUBE TP SCH (09:51)
[2020-10-28] MEDS: NICOTINE 14 MG/24 HOURS TOPICAL PATCH TD SCH (09:51)
[2020-10-28] MEDS: FLUTICASONE/UMECLIDIN/VILANTER (TRELEGY ELLIPTA 100-62.5-25) INAHLER IH SCH (09:51)
[2020-10-28] MEDS: THIAMINE HCL 200 MG/2 ML VIAL IVPB SCH (10:32)
[2020-10-28 14:12] VITALS: BP 122/64; PULSE 78
== END 2020-10-28 16:09 | disposition home or self-care (01) | DRG 885 ==
LOC: JER 14:07 → JERBED 17:23 → J4S 21:53
PROVIDERS: ATTEND Internal Medicine
DX: F33.2 Major depressive disorder, recurrent severe without psychotic features (principal); E43 Unspecified severe protein-calorie malnutrition; Z68.1 Body mass index [BMI] 19.9 or less, adult; R64 Cachexia; E46 Unspecified protein-calorie malnutrition; R62.7 Adult failure to thrive; E03.9 Hypothyroidism, unspecified; E78.5 Hyperlipidemia, unspecified; R91.8 Other nonspecific abnormal finding of lung field; J44.9 Chronic obstructive pulmonary disease, unspecified; K21.9 Gastro-esophageal reflux disease without esophagitis; F10.20 Alcohol dependence, uncomplicated; R94.31 Abnormal electrocardiogram [ECG] [EKG]; R63.0 Anorexia; Z86.718 Personal history of other venous thrombosis and embolism
CPT/HCPCS: 36415; 71045-TC-FY; 71250-TC; 80053; 80307; 81003; 82550; 82607; 82747; 83690; 83735; 84100; 84436; 84443; 84479; 84484; 85014; 85025; 85610; 85730; 93005; 93010; 97116-GP; 97161-GP; 99285-25; C9803; U0003; U0005

== ENCOUNTER 2021-02-12 16:38 | Inpatient (IN) | payer OTHER ==
[2021-02-12] MEDS ORDERED: ALBUTEROL SO4 2.5/IPRATROPIUM 0.5 INH SOL 3 ML VIAL.NEB. NEB ONE ×2 (17:56→18:07)
[2021-02-12] MEDS: ALBUTEROL SO4 2.5/IPRATROPIUM 0.5 INH SOL 3 ML VIAL.NEB. NEB SCH ×2 (18:07→18:08)
[2021-02-12 18:57] LABS: BASO % 0.9 % (0-2.0); EOS % 0.9 % (0-4.5); HEMOGLOBIN 14.5 GM/dL (10.7-15.3); MCH 36.5 pg (25.7-33.7); MCHC 34.5 g/dl (32.0-36.0); MEAN CELL VOLUME 105.8 fl (80-96); MEAN PLT VOLUME 7.4 fl (7.5-11.1); MONO % 11.3 % (3.8-10.2); NEUT % 74.9 % (42.8-82.8); PLATELET COUNT 221 10^3/uL (134-434); RBC 3.97 M/mm3 (3.60-5.2); RDW 15.1 % (11.6-15.6); WHITE BLOOD COUNT 5.3 K/mm3 (4.0-10.0)
[2021-02-12 19:19] LABS: CHLORIDE 101 mmol/L (98-107); SODIUM 135 mmol/L (136-145)
[2021-02-12 19:22] LABS: ANISOCYTOSIS 2+; MACROCYTOSIS 2+; PLATELET ESTIMATE NORMAL
[2021-02-12 19:23] LABS: ALBUMIN 2.9 g/dl (3.4-5.0); ANION GAP 10 MMOL/L (8-16); BLOOD UREA NITROGEN 16.6 mg/dL (7-18); CALCIUM 8.8 mg/dL (8.5-10.1); CO2 24 mmol/L (21-32)
[2021-02-12 19:24] LABS: GLUCOSE,RANDOM 152 mg/dL (74-106); LIPASE 186 U/L (73-393)
[2021-02-12 19:25] LABS: PHOSPHOROUS 3.2 mg/dL (2.5-4.9); SGPT/ALT 59 U/L (13-61)
[2021-02-12 19:27] LABS: CREATININE 0.5 mg/dL (0.55-1.3); SGOT/AST 53 U/L (15-37)
[2021-02-12 19:28] LABS: BILIRUBIN,TOTAL 0.4 mg/dL (0.2-1); TOT PROT 5.9 g/dl (6.4-8.2)
[2021-02-12 19:29] LABS: ALK PHOS 128 U/L (45-117)
[2021-02-12 19:47] LABS: MAGNESIUM 1.9 mg/dL (1.8-2.4)
[2021-02-12 23:21] LABS: INR 0.82 (0.83-1.09); PROTHROMBIN TIME (PATIENT) 9.6 SEC (9.7-13.0)
[2021-02-12 23:24] LABS: ACTIVATED PTT 34.1 SECONDS (25.2-36.5)
[2021-02-13] MEDS ORDERED: FOLIC ACID INJECTION - 1 MG, THIAMINE HCL 100 MG, MULTIVIT INJECTION ADULT 10 ML in SOD... IVPB ONE (04:39)
[2021-02-13 07:25] LABS: HEMOGLOBIN 14.2 GM/dL (10.7-15.3); MCH 36.8 pg (25.7-33.7); MCHC 34.8 g/dl (32.0-36.0); MEAN CELL VOLUME 105.9 fl (80-96); MEAN PLT VOLUME 7.4 fl (7.5-11.1); PLATELET COUNT 225 10^3/uL (134-434); RBC 3.87 M/mm3 (3.60-5.2); RDW 15.2 % (11.6-15.6); WHITE BLOOD COUNT 3.8 K/mm3 (4.0-10.0)
[2021-02-13 07:46] LABS: ALBUMIN 2.9 g/dl (3.4-5.0); CALCIUM 8.8 mg/dL (8.5-10.1)
[2021-02-13 07:50] LABS: CREATININE 0.4 mg/dL (0.55-1.3); PHOSPHOROUS 3.9 mg/dL (2.5-4.9)
[2021-02-13 07:52] LABS: BILIRUBIN,TOTAL 0.7 mg/dL (0.2-1); TOT PROT 5.8 g/dl (6.4-8.2)
[2021-02-13] MEDS ORDERED: PT OWN MED DRAWER 7, Y5N ONE (09:29)
[2021-02-13] MEDS: PARoxetine HCL 10 MG TABLET PO SCH (09:44)
[2021-02-13] MEDS: ENOXAPARIN NA (PORCINE) 40 MG/0.4 ML DISP.SYRIN SQ SCH (09:44)
[2021-02-13] MEDS: FLUTICASONE/UMECLIDIN/VILANTER(100-62.5-25 TRELEGY ELLIPTA) INAHLER IH SCH (10:39)
[2021-02-13] MEDS: traZODone HCL 50 MG TABLET (FP) PO PRN (21:21)
[2021-02-13] MEDS: MIRTAZAPINE 15 MG TABLET (FP) PO SCH (21:21)
[2021-02-13] MEDS: THIAMINE HCL 100 MG TABLET (FP) PO SCH (21:21)
[2021-02-14 08:41] LABS: BASO % 0.7 % (0-2.0); EOS % 2.2 % (0-4.5); HEMATOCRIT 40.2 % (32.4-45.2); HEMOGLOBIN 14.1 GM/dL (10.7-15.3); LYMPH % 30.6 % (8-40); MCH 36.7 pg (25.7-33.7); MCHC 35.1 g/dl (32.0-36.0); MEAN CELL VOLUME 104.6 fl (80-96); MEAN PLT VOLUME 7.3 fl (7.5-11.1); NEUT % 52.5 % (42.8-82.8); PLATELET COUNT 232 10^3/uL (134-434); RBC 3.84 M/mm3 (3.60-5.2); RDW 14.9 % (11.6-15.6); WHITE BLOOD COUNT 4.2 K/mm3 (4.0-10.0)
[2021-02-14 08:45] LABS: INR 0.86 (0.83-1.09); PROTHROMBIN TIME (PATIENT) 10.1 SEC (9.7-13.0)
[2021-02-14 09:02] LABS: CALCIUM 8.7 mg/dL (8.5-10.1)
[2021-02-14 09:04] LABS: ALBUMIN 2.6 g/dl (3.4-5.0); BLOOD UREA NITROGEN 5.8 mg/dL (7-18)
[2021-02-14 09:05] LABS: BILIRUBIN,DIRECT 0.2 mg/dL (0.0-0.2)
[2021-02-14 09:06] LABS: CREATININE 0.5 mg/dL (0.55-1.3)
[2021-02-14 09:08] LABS: BILIRUBIN,TOTAL 0.8 mg/dL (0.2-1); TOT PROT 5.4 g/dl (6.4-8.2)
[2021-02-14] MEDS ORDERED: PT OWN MED DRAWER 7, Y5N ONE ×2 (09:16→12:37)
[2021-02-14] MEDS: PARoxetine HCL 10 MG TABLET PO SCH (12:38)
[2021-02-14] MEDS: MULTIVITAMINS (DAILY MVI) TABLET (FP) PO SCH (12:38)
[2021-02-14] MEDS: FOLIC ACID 1 MG TABLET (FP) PO SCH (12:38)
[2021-02-14] MEDS: ENOXAPARIN NA (PORCINE) 40 MG/0.4 ML DISP.SYRIN SQ SCH (12:38)
[2021-02-14] MEDS: FLUTICASONE/UMECLIDIN/VILANTER(100-62.5-25 TRELEGY ELLIPTA) INAHLER IH SCH (12:39)
[2021-02-14] MEDS ORDERED: DOCUSATE SODIUM 100 MG CAPSULE (FP) PO ONE (15:34)
[2021-02-14] MEDS ORDERED: POLYETHYLENE GLYCOL (HEALTHYLAX) 3350 17 GM PACKET PO ONE (15:34)
[2021-02-14] MEDS: AMINO ACIDS/PROTEIN HYDROLYS 30 ML LIQUID.PKT PO SCH (17:13)
[2021-02-14] MEDS: THIAMINE HCL 100 MG TABLET (FP) PO SCH (21:24)
[2021-02-14] MEDS: traZODone HCL 50 MG TABLET (FP) PO PRN (21:24)
[2021-02-14] MEDS: MIRTAZAPINE 15 MG TABLET (FP) PO SCH (21:24)
[2021-02-14 21:43] VITALS: BMI 16.2
[2021-02-15 05:35] VITALS: BP 135/70; PULSE 73; TEMP 98.7
[2021-02-15] MEDS: AMINO ACIDS/PROTEIN HYDROLYS 30 ML LIQUID.PKT PO SCH (09:22)
[2021-02-15] MEDS: MULTIVITAMINS (DAILY MVI) TABLET (FP) PO SCH (09:22)
[2021-02-15] MEDS: FOLIC ACID 1 MG TABLET (FP) PO SCH (09:23)
[2021-02-15] MEDS: ENOXAPARIN NA (PORCINE) 40 MG/0.4 ML DISP.SYRIN SQ SCH (09:23)
[2021-02-15] MEDS: FLUTICASONE/UMECLIDIN/VILANTER(100-62.5-25 TRELEGY ELLIPTA) INAHLER IH SCH (09:23)
[2021-02-15] MEDS: PARoxetine HCL 10 MG TABLET PO SCH (09:23)
[2021-02-15] MEDS ORDERED: POLYETHYLENE GLYCOL (HEALTHYLAX) 3350 17 GM PACKET PO SCH (10:00)
== END 2021-02-15 13:48 | disposition home or self-care (01) | DRG 391 ==
LOC: JER 16:38 → JERBED 19:39 → J6S 02-13 00:20
PROVIDERS: ADMIT Internal Medicine; ATTEND Nurse Practitioner Acute Care
DX: K29.20 Alcoholic gastritis without bleeding (principal); E43 Unspecified severe protein-calorie malnutrition; Z68.1 Body mass index [BMI] 19.9 or less, adult; R13.13 Dysphagia, pharyngeal phase; E78.5 Hyperlipidemia, unspecified; J44.9 Chronic obstructive pulmonary disease, unspecified; I10 Essential (primary) hypertension; R63.0 Anorexia; R11.2 Nausea with vomiting, unspecified; F17.210 Nicotine dependence, cigarettes, uncomplicated; R62.7 Adult failure to thrive; F10.10 Alcohol abuse, uncomplicated; K29.80 Duodenitis without bleeding; R63.4 Abnormal weight loss; F41.8 Other specified anxiety disorders; R74.01 Elevation of levels of liver transaminase levels; K76.0 Fatty (change of) liver, not elsewhere classified; Y90.0 Blood alcohol level of less than 20 mg/100 ml
CPT/HCPCS: 36415; 70360-TC-FY; 70491-TC; 71046-TC-FY; 71260-TC; 74177-TC; 74250-TC-FY; 80053; 80076; 80307; 82607; 82746; 83690; 83735; 84100; 84439; 84443; 85025; 85027; 85610; 85730; 93005; 93010; 97116-GP; 97161-GP; 99285-25; C9803; U0003; U0005

== ENCOUNTER → 2021-07-15 | Day surgery (SDC) | payer OTHER ==
[2021-07-15 11:01] LABS: BASO % 0.7 % (0-2.0); EOS % 5.3 % (0-4.5); HEMATOCRIT 42.8 % (32.4-45.2); HEMOGLOBIN 14.4 GM/dL (10.7-15.3); LYMPH % 32.4 % (8-40); MCH 32.5 pg (25.7-33.7); MCHC 33.7 g/dl (32.0-36.0); MEAN CELL VOLUME 96.6 fl (80-96); MEAN PLT VOLUME 7.2 fl (7.5-11.1); MONO % 9.5 % (3.8-10.2); NEUT % 52.1 % (42.8-82.8); PLATELET COUNT 322 10^3/uL (134-434); RBC 4.43 M/mm3 (3.60-5.2); RDW 14.3 % (11.6-15.6)
[2021-07-15 12:03] LABS: INR 0.99 (0.83-1.09); PROTHROMBIN TIME (PATIENT) 11.4 SEC (9.7-13.0)
== END ==
LOC: JRADIR 09:56
PROVIDERS: ATTEND Otolaryngology
DX: D37.030 Neoplasm of uncertain behavior of the parotid salivary glands (principal)
CPT/HCPCS: 36415; 85025; 85610

== ENCOUNTER → 2021-07-29 | Day surgery (SDC) | payer OTHER | END | disposition home or self-care (01) | LOC: JRADIR 10:55 | PROVIDERS: ATTEND Otolaryngology | PROC: 0CBJ3ZX Excision of Minor Salivary Gland, Percutaneous Approach, Diagnostic (ICD-10-PCS; principal; 2021-07-29) | DX: D11.0 Benign neoplasm of parotid gland (principal) | CPT/HCPCS: 42400; 76942-TC; 87899; 88305-TC ==

== ENCOUNTER 2021-08-22 10:58 | Emergency (ER) | payer OTHER ==
[2021-08-22 11:24] VITALS: TEMP 98.2; BMI 18.3
[2021-08-22] MEDS ORDERED: SODIUM CHLORIDE 0.9% 500 ML INFUS.BAG IV ONE (12:04)
[2021-08-22] MEDS ORDERED: MAG HYDROX/AL HYDROX/SIMETH 30 ML UNIT-DOSE CUP PO ONE (12:05)
[2021-08-22] MEDS ORDERED: FAMOTIDINE 20 MG/50 ML IVPB 20 MG/50 ML MG IVPB ONE (12:05)
[2021-08-22] MEDS ORDERED: ONDANSETRON 4 MG/2 ML VIAL IVPB ONE (12:05)
[2021-08-22] MEDS ORDERED: diazePAM CARPU-JECT 10 MG/2 ML DISP.SYRIN IVPUSH ONE (12:24)
[2021-08-22] MEDS ORDERED: ONDANSETRON 4 MG/2 ML VIAL ONE (12:39)
[2021-08-22] MEDS ORDERED: diazePAM CARPU-JECT 10 MG/2 ML DISP.SYRIN ONE (12:39)
[2021-08-22] MEDS ORDERED: MAG HYDROX/AL HYDROX/SIMETH 30 ML UNIT-DOSE CUP ONE (12:39)
[2021-08-22] MEDS ORDERED: FAMOTIDINE 10 MG/ML VIAL IVPB ONE (12:40)
[2021-08-22 13:19] LABS: BASO % 0.7 % (0-2.0); EOS % 2.6 % (0-4.5); HEMATOCRIT 45.8 % (32.4-45.2); HEMOGLOBIN 15.5 GM/dL (10.7-15.3); LYMPH % 32.3 % (8-40); MCH 33.1 pg (25.7-33.7); MCHC 33.9 g/dl (32.0-36.0); MEAN CELL VOLUME 97.8 fl (80-96); MEAN PLT VOLUME 7.6 fl (7.5-11.1); MONO % 9.3 % (3.8-10.2); NEUT % 55.1 % (42.8-82.8); PLATELET COUNT 199 10^3/uL (134-434); RBC 4.68 M/mm3 (3.60-5.2); RDW 15.4 % (11.6-15.6); WHITE BLOOD COUNT 4.5 K/mm3 (4.0-10.0)
[2021-08-22 13:42] LABS: BLOOD UREA NITROGEN 11.1 mg/dL (7-18); CALCIUM 9.5 mg/dL (8.5-10.1)
[2021-08-22 13:43] LABS: ALBUMIN 3.7 g/dl (3.4-5.0); MAGNESIUM 1.9 mg/dL (1.8-2.4)
[2021-08-22 13:45] LABS: CREATININE 0.6 mg/dL (0.55-1.3); PHOSPHOROUS 2.6 mg/dL (2.5-4.9)
[2021-08-22 13:47] LABS: BILIRUBIN,TOTAL 0.9 mg/dL (0.2-1); TOT PROT 6.5 g/dl (6.4-8.2)
[2021-08-22 14:49] VITALS: BP 113/63; PULSE 81
== END 2021-08-22 15:02 | disposition home or self-care (01) ==
LOC: JER 10:58
PROC: 3E033GC Introduction of Other Therapeutic Substance into Peripheral Vein, Percutaneous Approach (ICD-10-PCS; principal; 2021-08-22)
DX: R53.1 Weakness (principal)
CPT/HCPCS: 36415; 71045-TC-FY; 80053; 83690; 83735; 84100; 84484; 85025; 93005; 93010; 96365; 96375; 99285-25

== ENCOUNTER 2021-09-22 10:01 | Inpatient (IN) | payer OTHER ==
[2021-09-22 10:32] VITALS: BMI 19.3
[2021-09-22] MEDS ORDERED: LORazepam 1 MG TABLET PO SCH ×2 (11:00→12:01)
[2021-09-22] MEDS ORDERED: LORazepam 1 MG TABLET PO PRN (11:49)
[2021-09-22] MEDS ORDERED: LOPERAMIDE HCL 2 MG CAPSULE PO PRN (11:49)
[2021-09-22] MEDS ORDERED: MAG HYDROX/AL HYDROX/SIMETH 30 ML UNIT-DOSE CUP PO PRN (11:49)
[2021-09-22] MEDS ORDERED: NICOTINE 10 MG CARTRIDGE (INHALER) IH PRN (11:49)
[2021-09-22] MEDS ORDERED: DICYCLOMINE HCL 10 MG CAPSULE PO PRN (11:49)
[2021-09-22] MEDS ORDERED: ACETAMINOPHEN 325 MG TABLET (FP) PO PRN (11:49)
[2021-09-22] MEDS ORDERED: MAGNESIUM HYDROX 2400MG/30ML ORAL SUSPENSION 30 ML CUP PO PRN (11:49)
[2021-09-22] MEDS ORDERED: BENZOCAINE/MENTHOL (CHLORASEPTIC ) LOZENGE MM PRN (11:49)
[2021-09-22] MEDS ORDERED: ONDANSETRON *ODT* 4 MG TABLET SL PRN (11:49)
[2021-09-22] MEDS ORDERED: BISMUTH SUBSALICYLATE 524 MG/30 ML PO PRN (11:49)
[2021-09-22] MEDS ORDERED: IBUPROFEN 400 MG TABLET (FP) PO PRN (11:49)
[2021-09-22] MEDS ORDERED: METHOCARBAMOL 500 MG TABLET PO PRN (11:49)
[2021-09-22] MEDS ORDERED: IBUPROFEN 600 MG TABLET (FP) PO PRN (11:49)
[2021-09-22] MEDS ORDERED: MAGNESIUM CITRATE 300 ML BOTTLE PO PRN (11:49)
[2021-09-22] MEDS ORDERED: traZODone HCL 150 MG TABLET PO PRN (11:51)
[2021-09-22] MEDS: LORazepam 1 MG TABLET PO SCH ×3 (12:37→22:26)
[2021-09-22] MEDS: NICOTINE 14 MG/24 HOURS TOPICAL PATCH TD SCH (12:38)
[2021-09-22] MEDS: PRENATAL VITAMINS W/ FOLIC ACID TABLET (FP) PO SCH (12:44)
[2021-09-22] MEDS: hydrOXYzine PAMOATE 25 MG CAPSULE (FP) PO SCH ×3 (13:53→22:25)
[2021-09-22 15:21] LABS: HEMATOCRIT 40.4 % (32.4-45.2); HEMOGLOBIN 13.6 GM/dL (10.7-15.3); MCH 33.6 pg (25.7-33.7); MCHC 33.7 g/dl (32.0-36.0); MEAN CELL VOLUME 99.8 fl (80-96); MEAN PLT VOLUME 7.7 fl (7.5-11.1); PLATELET COUNT 300 10^3/uL (134-434); RBC 4.05 M/mm3 (3.60-5.2); RDW 15.4 % (11.6-15.6); WHITE BLOOD COUNT 7.2 K/mm3 (4.0-10.0)
[2021-09-22 15:51] LABS: CALCIUM 9.2 mg/dL (8.5-10.1)
[2021-09-22 15:52] LABS: ALBUMIN 3.8 g/dl (3.4-5.0); BLOOD UREA NITROGEN 12.2 mg/dL (7-18)
[2021-09-22 15:55] LABS: CREATININE 0.7 mg/dL (0.55-1.3)
[2021-09-22 15:56] LABS: BILIRUBIN,TOTAL 0.6 mg/dL (0.2-1)
[2021-09-22] MEDS: THIAMINE HCL 100 MG TABLET (FP) PO SCH (22:25)
[2021-09-22] MEDS: MELATONIN 5 MG TABLETS PO SCH (22:25)
[2021-09-22] MEDS: ATORVASTATIN CA 20 MG TABLET (FP) PO SCH (22:25)
[2021-09-23] MEDS: hydrOXYzine PAMOATE 25 MG CAPSULE (FP) PO SCH ×5 (06:03→22:32)
[2021-09-23] MEDS: LORazepam 1 MG TABLET PO SCH ×4 (06:03→22:30)
[2021-09-23] MEDS: ACETAMINOPHEN 325 MG TABLET (FP) PO PRN (06:05)
[2021-09-23] MEDS ORDERED: MULTIVITAMINS (DAILY MVI) TABLET (FP) PO SCH (10:00)
[2021-09-23] MEDS: NICOTINE 14 MG/24 HOURS TOPICAL PATCH TD SCH (10:35)
[2021-09-23] MEDS: PRENATAL VITAMINS W/ FOLIC ACID TABLET (FP) PO SCH (10:35)
[2021-09-23] MEDS: amLODIPine BESYLATE 5 MG TABLET (FP) PO SCH (10:36)
[2021-09-23] MEDS: PARoxetine HCL 20 MG TABLET PO SCH (10:36)
[2021-09-23] MEDS: ATORVASTATIN CA 20 MG TABLET (FP) PO SCH (22:30)
[2021-09-23] MEDS: THIAMINE HCL 100 MG TABLET (FP) PO SCH (22:30)
[2021-09-23] MEDS: MELATONIN 5 MG TABLETS PO SCH (22:31)
[2021-09-24] MEDS: ACETAMINOPHEN 325 MG TABLET (FP) PO PRN (04:46)
[2021-09-24] MEDS: LORazepam 1 MG TABLET PO SCH ×4 (05:43→22:58)
[2021-09-24] MEDS: hydrOXYzine PAMOATE 25 MG CAPSULE (FP) PO SCH ×5 (05:43→22:58)
[2021-09-24] MEDS: amLODIPine BESYLATE 5 MG TABLET (FP) PO SCH (10:14)
[2021-09-24] MEDS: PRENATAL VITAMINS W/ FOLIC ACID TABLET (FP) PO SCH (10:14)
[2021-09-24] MEDS: PARoxetine HCL 20 MG TABLET PO SCH (10:14)
[2021-09-24] MEDS: NICOTINE 14 MG/24 HOURS TOPICAL PATCH TD SCH (11:09)
[2021-09-24] MEDS: MELATONIN 5 MG TABLETS PO SCH (22:58)
[2021-09-24] MEDS: ATORVASTATIN CA 20 MG TABLET (FP) PO SCH (22:58)
[2021-09-24] MEDS: THIAMINE HCL 100 MG TABLET (FP) PO SCH (22:58)
[2021-09-25] MEDS ORDERED: LORazepam 0.5 MG TABLET PO PRN
[2021-09-25] MEDS: LORazepam 0.5 MG TABLET PO SCH ×4 (05:48→22:29)
[2021-09-25] MEDS: hydrOXYzine PAMOATE 25 MG CAPSULE (FP) PO SCH ×5 (05:48→22:29)
[2021-09-25] MEDS: NICOTINE 14 MG/24 HOURS TOPICAL PATCH TD SCH (10:25)
[2021-09-25] MEDS: amLODIPine BESYLATE 5 MG TABLET (FP) PO SCH (10:25)
[2021-09-25] MEDS: PRENATAL VITAMINS W/ FOLIC ACID TABLET (FP) PO SCH (10:25)
[2021-09-25] MEDS: PARoxetine HCL 20 MG TABLET PO SCH (10:25)
[2021-09-25] MEDS: THIAMINE HCL 100 MG TABLET (FP) PO SCH (22:29)
[2021-09-25] MEDS: ATORVASTATIN CA 20 MG TABLET (FP) PO SCH (22:29)
[2021-09-25] MEDS: MELATONIN 5 MG TABLETS PO SCH (22:29)
[2021-09-26] MEDS ORDERED: LORazepam 0.5 MG TABLET PO ONE (05:00)
[2021-09-26] MEDS: hydrOXYzine PAMOATE 25 MG CAPSULE (FP) PO SCH (05:57)
[2021-09-26 08:42] VITALS: BP 101/61; PULSE 64; TEMP 96.3
== END 2021-09-26 09:54 | disposition other institution (70) | DRG 897 ==
LOC: YASAS 10:01 → Y3N 11:28
PROVIDERS: ADMIT Allergy & Immunology; ATTEND Surgery
PROC: HZ2ZZZZ Detoxification Services for Substance Abuse Treatment (ICD-10-PCS; principal; 2021-09-22)
DX: F10.230 Alcohol dependence with withdrawal, uncomplicated (principal); F17.210 Nicotine dependence, cigarettes, uncomplicated; F41.8 Other specified anxiety disorders; F32.A Depression, unspecified; E78.5 Hyperlipidemia, unspecified; I73.9 Peripheral vascular disease, unspecified; I10 Essential (primary) hypertension; J44.9 Chronic obstructive pulmonary disease, unspecified; K21.9 Gastro-esophageal reflux disease without esophagitis; K29.50 Unspecified chronic gastritis without bleeding; K76.0 Fatty (change of) liver, not elsewhere classified; G47.00 Insomnia, unspecified; Z86.79 Personal history of other diseases of the circulatory system
CPT/HCPCS: 36415; 80053; 85027; 86780; 87811; 93005; 93010; C9803-CS; U0003; U0005

== ENCOUNTER 2021-10-31 08:56 | Inpatient (IN) | payer OTHER ==
[2021-10-31 09:37] VITALS: BMI 19.1
[2021-10-31] MEDS ORDERED: ONDANSETRON *ODT* 4 MG TABLET SL PRN (09:46)
[2021-10-31] MEDS ORDERED: IBUPROFEN 600 MG TABLET (FP) PO PRN (09:46)
[2021-10-31] MEDS ORDERED: IBUPROFEN 400 MG TABLET (FP) PO PRN (09:46)
[2021-10-31] MEDS ORDERED: MAGNESIUM CITRATE 300 ML BOTTLE PO PRN (09:46)
[2021-10-31] MEDS ORDERED: BENZOCAINE/MENTHOL (CHLORASEPTIC ) LOZENGE MM PRN (09:46)
[2021-10-31] MEDS ORDERED: LOPERAMIDE HCL 2 MG CAPSULE PO PRN (09:46)
[2021-10-31] MEDS ORDERED: ACETAMINOPHEN 325 MG TABLET (FP) PO PRN ×2 (09:46)
[2021-10-31] MEDS ORDERED: DICYCLOMINE HCL 10 MG CAPSULE PO PRN (09:46)
[2021-10-31] MEDS ORDERED: MAGNESIUM HYDROX 2400MG/30ML ORAL SUSPENSION 30 ML CUP PO PRN (09:46)
[2021-10-31] MEDS ORDERED: BISMUTH SUBSALICYLATE 524 MG/30 ML PO PRN (09:46)
[2021-10-31] MEDS ORDERED: METHOCARBAMOL 500 MG TABLET PO PRN (09:46)
[2021-10-31] MEDS ORDERED: MAG HYDROX/AL HYDROX/SIMETH 30 ML UNIT-DOSE CUP PO PRN (09:46)
[2021-10-31] MEDS: hydrOXYzine PAMOATE 25 MG CAPSULE (FP) PO SCH ×4 (11:30→22:09)
[2021-10-31] MEDS: NICOTINE 14 MG/24 HOURS TOPICAL PATCH TD SCH (11:30)
[2021-10-31] MEDS: PRENATAL VITAMINS W/ FOLIC ACID TABLET (FP) PO SCH (11:30)
[2021-10-31 15:29] LABS: CALCIUM 8.8 mg/dL (8.5-10.1)
[2021-10-31 15:30] LABS: ALBUMIN 3.8 g/dl (3.4-5.0); BLOOD UREA NITROGEN 13.9 mg/dL (7-18); HEMATOCRIT 42.3 % (32.4-45.2); HEMOGLOBIN 14.1 GM/dL (10.7-15.3); MCH 33.6 pg (25.7-33.7); MCHC 33.4 g/dl (32.0-36.0); MEAN CELL VOLUME 100.4 fl (80-96); MEAN PLT VOLUME 7.8 fl (7.5-11.1); PLATELET COUNT 281 10^3/uL (134-434); RBC 4.21 M/mm3 (3.60-5.2); WHITE BLOOD COUNT 6.2 K/mm3 (4.0-10.0)
[2021-10-31 15:32] LABS: CREATININE 0.7 mg/dL (0.55-1.3)
[2021-10-31 15:34] LABS: BILIRUBIN,TOTAL 0.4 mg/dL (0.2-1); TOT PROT 6.8 g/dl (6.4-8.2)
[2021-10-31] MEDS: traZODone HCL 50 MG TABLET (FP) PO SCH (22:08)
[2021-10-31] MEDS: THIAMINE HCL 100 MG TABLET (FP) PO SCH (22:09)
[2021-10-31] MEDS: ATORVASTATIN CA 20 MG TABLET (FP) PO SCH (22:09)
[2021-10-31] MEDS: MELATONIN 5 MG TABLETS PO SCH (22:09)
[2021-11-01] MEDS: hydrOXYzine PAMOATE 25 MG CAPSULE (FP) PO SCH ×5 (06:46→22:08)
[2021-11-01] MEDS ORDERED: PAROXETINE HCL 20 MG, PAROXETINE HCL 10 MG PO SCH (10:00)
[2021-11-01] MEDS ORDERED: PARoxetine HCL 30 MG TABLET PO SCH (10:00)
[2021-11-01] MEDS: NICOTINE 14 MG/24 HOURS TOPICAL PATCH TD SCH (10:15)
[2021-11-01] MEDS: NICOTINE 10 MG CARTRIDGE (INHALER) IH PRN (10:15)
[2021-11-01] MEDS: PRENATAL VITAMINS W/ FOLIC ACID TABLET (FP) PO SCH (10:15)
[2021-11-01] MEDS: amLODIPine BESYLATE 5 MG TABLET (FP) PO SCH (10:15)
[2021-11-01] MEDS: PARoxetine HCL 20 MG TABLET PO SCH (14:41)
[2021-11-01] MEDS: MELATONIN 5 MG TABLETS PO SCH (22:08)
[2021-11-01] MEDS: ATORVASTATIN CA 20 MG TABLET (FP) PO SCH (22:08)
[2021-11-01] MEDS: traZODone HCL 50 MG TABLET (FP) PO SCH (22:08)
[2021-11-01] MEDS: THIAMINE HCL 100 MG TABLET (FP) PO SCH (22:08)
[2021-11-02 07:16] VITALS: RESP 18
[2021-11-02] MEDS: hydrOXYzine PAMOATE 25 MG CAPSULE (FP) PO SCH ×2 (07:34→10:32)
[2021-11-02] MEDS: NICOTINE 10 MG CARTRIDGE (INHALER) IH PRN (07:42)
[2021-11-02] MEDS ORDERED: PARoxetine HCL 20 MG TABLET PO SCH (10:00)
[2021-11-02] MEDS: PRENATAL VITAMINS W/ FOLIC ACID TABLET (FP) PO SCH (10:32)
[2021-11-02] MEDS: amLODIPine BESYLATE 5 MG TABLET (FP) PO SCH (10:33)
[2021-11-02] MEDS: PARoxetine HCL 20 MG TABLET PO SCH (10:33)
[2021-11-02] MEDS: NICOTINE 14 MG/24 HOURS TOPICAL PATCH TD SCH (10:35)
[2021-11-02 13:02] VITALS: BP 142/89; PULSE 76; TEMP 98.2
== END 2021-11-02 14:12 | disposition home or self-care (01) | DRG 897 ==
LOC: YASAS 08:56 → Y3N 10:21
PROVIDERS: ADMIT Allergy & Immunology; ATTEND Surgery
PROC: HZ2ZZZZ Detoxification Services for Substance Abuse Treatment (ICD-10-PCS; principal; 2021-10-31)
DX: F10.230 Alcohol dependence with withdrawal, uncomplicated (principal); F41.9 Anxiety disorder, unspecified; F32.A Depression, unspecified; E78.5 Hyperlipidemia, unspecified; I10 Essential (primary) hypertension; J44.9 Chronic obstructive pulmonary disease, unspecified; K21.9 Gastro-esophageal reflux disease without esophagitis; Z86.718 Personal history of other venous thrombosis and embolism; Z79.01 Long term (current) use of anticoagulants
CPT/HCPCS: 36415; 80053; 85027; 86780; C9803-CS; U0003; U0005

== ENCOUNTER 2021-12-26 12:02 | Inpatient (IN) | payer OTHER ==
[2021-12-26] MEDS ORDERED: ONDANSETRON 4 MG/2 ML VIAL IVPUSH ONE (13:20)
[2021-12-26] MEDS ORDERED: SODIUM CHLORIDE 1,000 ML IV STA (13:20)
[2021-12-26] MEDS ORDERED: ACETAMINOPHEN 1000 MG/100 ML BAG IVPB ONE (13:21)
[2021-12-26] MEDS ORDERED: ACETAMINOPHEN INJECTION 100 ML IVPB ONE (13:26)
[2021-12-26] MEDS ORDERED: ONDANSETRON 4 MG/2 ML VIAL ONE (13:26)
[2021-12-26 13:58] LABS: BASO % 0.8 % (0-2.0); EOS % 0.2 % (0-4.5); HEMATOCRIT 49.8 % (32.4-45.2); HEMOGLOBIN 17.1 GM/dL (10.7-15.3); LYMPH % 13.2 % (8-40); MCH 34.4 pg (25.7-33.7); MCHC 34.4 g/dl (32.0-36.0); MEAN CELL VOLUME 99.9 fl (80-96); MEAN PLT VOLUME 7.4 fl (7.5-11.1); NEUT % 80.8 % (42.8-82.8); PLATELET COUNT 261 10^3/uL (134-434); RBC 4.99 M/mm3 (3.60-5.2); RDW 15.3 % (11.6-15.6); WHITE BLOOD COUNT 10.6 K/mm3 (4.0-10.0)
[2021-12-26 14:22] LABS: ALBUMIN 3.8 g/dl (3.4-5.0); BLOOD UREA NITROGEN 12.8 mg/dL (7-18); MAGNESIUM 2.1 mg/dL (1.8-2.4)
[2021-12-26 14:26] LABS: BILIRUBIN,TOTAL 0.5 mg/dL (0.2-1); TOT PROT 7.5 g/dl (6.4-8.2)
[2021-12-26] MEDS ORDERED: THIAMINE HCL 200 MG/2 ML VIAL IVPB ONE (16:44)
[2021-12-26] MEDS ORDERED: THIAMINE HCL 200 MG/2 ML VIAL ONE (17:07)
[2021-12-26] MEDS: SODIUM CHLORIDE 1,000 ML IV SCH (17:07)
[2021-12-26 18:00] LABS: CALCIUM 8.6 mg/dL (8.5-10.1); CHLORIDE 98 mmol/L (98-107); SODIUM 136 mmol/L (136-145)
[2021-12-26 18:02] LABS: ANION GAP 20 MMOL/L (8-16); BLOOD UREA NITROGEN 12.9 mg/dL (7-18); CO2 18 mmol/L (21-32); GLUCOSE,RANDOM 100 mg/dL (74-106)
[2021-12-26 18:05] LABS: CREATININE 0.7 mg/dL (0.55-1.3)
[2021-12-26 18:33] LABS: EPI CELLS >36 /uL (0-25.1); HYALINE CASTS 5 /uL (0-3.1); URINE APPEARANCE CLEAR; URINE BACTERIA 98 /uL (0-1359); URINE BILIRUBIN NEGATIVE (NEGATIVE); URINE COLOR YELLOW; URINE GLUCOSE (UA) NEGATIVE (NEGATIVE); URINE KETONE 4+ (NEGATIVE); URINE LEUK ESTERASE NEGATIVE (NEGATIVE); URINE NITRITE NEGATIVE (NEGATIVE); URINE PROTEIN 2+ (NEGATIVE); URINE RBC 18 /uL (0-23.9); URINE WBC 33 /uL (0-25.8)
[2021-12-26 19:11] LABS: COCAINE, UR NEGATIVE (NEGATIVE); METHADONE, UR NEGATIVE (NEGATIVE); OPIATES, URI NEGATIVE (NEGATIVE); URINE AMPHETAMINES NEGATIVE (NEGATIVE); URINE BARBITURATES NEGATIVE (NEGATIVE); URINE BENZODIAZEPINES NEGATIVE (NEGATIVE)
[2021-12-26 19:12] LABS: PHENCYCLIDINE,URINE NEGATIVE (NEGATIVE)
[2021-12-26 20:02] LABS: YEAST MODERATE (NEGATIVE)
[2021-12-26] MEDS: traZODone HCL 50 MG TABLET (FP) PO PRN (21:53)
[2021-12-26] MEDS: NICOTINE 21 MG/24 HOURS TOPICAL PATCH TD SCH (21:53)
[2021-12-26] MEDS: ATORVASTATIN CA 20 MG TABLET (FP) PO SCH (21:53)
[2021-12-27] MEDS: SODIUM CHLORIDE 1,000 ML IV SCH ×2 (06:30→18:34)
[2021-12-27] MEDS ORDERED: ACETAMINOPHEN 500 MG TABLET (FP) PO ONE (06:32)
[2021-12-27] MEDS ORDERED: TRIMETHOBENZAMIDE HCL 200MG/2ML INJ IM PRN (06:39)
[2021-12-27 09:10] LABS: BASO % 0.4 % (0-2.0); EOS % 1.3 % (0-4.5); HEMATOCRIT 43.9 % (32.4-45.2); HEMOGLOBIN 14.7 GM/dL (10.7-15.3); LYMPH % 18.5 % (8-40); MCH 33.7 pg (25.7-33.7); MCHC 33.6 g/dl (32.0-36.0); MEAN CELL VOLUME 100.3 fl (80-96); MEAN PLT VOLUME 7.5 fl (7.5-11.1); NEUT % 74.8 % (42.8-82.8); PLATELET COUNT 199 10^3/uL (134-434); RBC 4.38 M/mm3 (3.60-5.2); RDW 15.3 % (11.6-15.6); WHITE BLOOD COUNT 8.1 K/mm3 (4.0-10.0)
[2021-12-27 09:17] LABS: ACTIVATED PTT 30.9 SECONDS (25.2-36.5)
[2021-12-27 09:19] LABS: INR 0.85 (0.83-1.09); PROTHROMBIN TIME (PATIENT) 9.8 SEC (9.7-13.0)
[2021-12-27 09:32] LABS: CALCIUM 8.5 mg/dL (8.5-10.1)
[2021-12-27 09:33] LABS: ALBUMIN 3.1 g/dl (3.4-5.0); BLOOD UREA NITROGEN 13.8 mg/dL (7-18); MAGNESIUM 1.9 mg/dL (1.8-2.4)
[2021-12-27 09:35] LABS: CREATININE 0.6 mg/dL (0.55-1.3); PHOSPHOROUS 1.6 mg/dL (2.5-4.9)
[2021-12-27 09:37] LABS: BILIRUBIN,TOTAL 0.7 mg/dL (0.2-1); TOT PROT 5.7 g/dl (6.4-8.2)
[2021-12-27] MEDS: PANTOPRAZOLE SODIUM 40 MG VIAL IVPUSH SCH (09:58)
[2021-12-27] MEDS: ENOXAPARIN NA (PORCINE) 40 MG/0.4 ML DISP.SYRIN SQ SCH (09:58)
[2021-12-27] MEDS: amLODIPine BESYLATE 5 MG TABLET (FP) PO SCH (09:58)
[2021-12-27] MEDS: NICOTINE 21 MG/24 HOURS TOPICAL PATCH TD SCH (09:58)
[2021-12-27] MEDS: PARoxetine HCL 10 MG TABLET PO SCH (09:58)
[2021-12-27] MEDS: THIAMINE HCL 100 MG TABLET (FP) PO SCH (09:58)
[2021-12-27] MEDS: FOLIC ACID 1 MG TABLET (FP) PO SCH (09:59)
[2021-12-27] MEDS ORDERED: POTASSIUM CHLORIDE TABS 20 MEQ TABLET.ER (FP) PO ONE (11:26)
[2021-12-27 12:47] VITALS: BMI 18.1
[2021-12-27] MEDS: NAPH,MB-DB/K PH,MBDB POWDER PACKET PO SCH (21:49)
[2021-12-27] MEDS: ATORVASTATIN CA 20 MG TABLET (FP) PO SCH (21:49)
[2021-12-27] MEDS: traZODone HCL 50 MG TABLET (FP) PO PRN (21:49)
[2021-12-28] MEDS: NAPH,MB-DB/K PH,MBDB POWDER PACKET PO SCH ×3 (06:09→21:23)
[2021-12-28 08:13] LABS: BASO % 0.5 % (0-2.0); EOS % 1.8 % (0-4.5); HEMATOCRIT 39.2 % (32.4-45.2); HEMOGLOBIN 13.7 GM/dL (10.7-15.3); LYMPH % 29.7 % (8-40); MCH 34.9 pg (25.7-33.7); MEAN CELL VOLUME 99.7 fl (80-96); MEAN PLT VOLUME 7.4 fl (7.5-11.1); MONO % 4.9 % (3.8-10.2); NEUT % 63.1 % (42.8-82.8); PLATELET COUNT 144 10^3/uL (134-434); RBC 3.93 M/mm3 (3.60-5.2); RDW 15.1 % (11.6-15.6); WHITE BLOOD COUNT 5.1 K/mm3 (4.0-10.0)
[2021-12-28 08:38] LABS: CALCIUM 8.5 mg/dL (8.5-10.1)
[2021-12-28 08:39] LABS: ALBUMIN 2.7 g/dl (3.4-5.0); BLOOD UREA NITROGEN 14.5 mg/dL (7-18); MAGNESIUM 1.9 mg/dL (1.8-2.4)
[2021-12-28 08:42] LABS: CREATININE 0.5 mg/dL (0.55-1.3)
[2021-12-28 08:43] LABS: BILIRUBIN,TOTAL 0.4 mg/dL (0.2-1); TOT PROT 4.9 g/dl (6.4-8.2)
[2021-12-28] MEDS: ENOXAPARIN NA (PORCINE) 40 MG/0.4 ML DISP.SYRIN SQ SCH (09:22)
[2021-12-28] MEDS: PANTOPRAZOLE SODIUM 40 MG VIAL IVPUSH SCH (09:23)
[2021-12-28] MEDS: NICOTINE 21 MG/24 HOURS TOPICAL PATCH TD SCH (09:23)
[2021-12-28] MEDS: amLODIPine BESYLATE 5 MG TABLET (FP) PO SCH (09:23)
[2021-12-28] MEDS: LORazepam 1 MG TABLET PO PRN (09:23)
[2021-12-28] MEDS: FOLIC ACID 1 MG TABLET (FP) PO SCH (09:24)
[2021-12-28] MEDS: THIAMINE HCL 100 MG TABLET (FP) PO SCH (09:24)
[2021-12-28] MEDS: PARoxetine HCL 10 MG TABLET PO SCH (09:24)
[2021-12-28 10:22] LABS: PHOSPHOROUS 1.8 mg/dL (2.5-4.9)
[2021-12-28] MEDS ORDERED: FAMOTIDINE 20 MG TABLET PO ONE (12:16)
[2021-12-28] MEDS: ATORVASTATIN CA 20 MG TABLET (FP) PO SCH (21:23)
[2021-12-28] MEDS: traZODone HCL 50 MG TABLET (FP) PO PRN (21:23)
[2021-12-29] MEDS: NAPH,MB-DB/K PH,MBDB POWDER PACKET PO SCH (06:04)
[2021-12-29 06:48] VITALS: BP 135/70; PULSE 78; RESP 20; TEMP 98.5
[2021-12-29 09:18] LABS: BASO % 0.5 % (0-2.0); HEMATOCRIT 40.7 % (32.4-45.2); HEMOGLOBIN 13.5 GM/dL (10.7-15.3); LYMPH % 28.9 % (8-40); MCH 33.5 pg (25.7-33.7); MCHC 33.1 g/dl (32.0-36.0); MEAN CELL VOLUME 101.2 fl (80-96); MEAN PLT VOLUME 7.9 fl (7.5-11.1); MONO % 5.2 % (3.8-10.2); NEUT % 63.4 % (42.8-82.8); PLATELET COUNT 161 10^3/uL (134-434); RBC 4.02 M/mm3 (3.60-5.2); WHITE BLOOD COUNT 4.8 K/mm3 (4.0-10.0)
[2021-12-29] MEDS: LORazepam 1 MG TABLET PO PRN (09:47)
[2021-12-29] MEDS: PANTOPRAZOLE SODIUM 40 MG VIAL IVPUSH SCH (09:47)
[2021-12-29] MEDS: NICOTINE 21 MG/24 HOURS TOPICAL PATCH TD SCH (09:47)
[2021-12-29] MEDS: ENOXAPARIN NA (PORCINE) 40 MG/0.4 ML DISP.SYRIN SQ SCH (09:47)
[2021-12-29] MEDS: PARoxetine HCL 10 MG TABLET PO SCH (09:47)
[2021-12-29] MEDS: FOLIC ACID 1 MG TABLET (FP) PO SCH (09:48)
[2021-12-29] MEDS: THIAMINE HCL 100 MG TABLET (FP) PO SCH (09:48)
[2021-12-29] MEDS: amLODIPine BESYLATE 5 MG TABLET (FP) PO SCH (09:48)
[2021-12-29 09:52] LABS: ALBUMIN 2.7 g/dl (3.4-5.0); BLOOD UREA NITROGEN 15.8 mg/dL (7-18); CALCIUM 8.3 mg/dL (8.5-10.1); MAGNESIUM 1.7 mg/dL (1.8-2.4)
[2021-12-29 09:54] LABS: CREATININE 0.5 mg/dL (0.55-1.3)
[2021-12-29 09:56] LABS: BILIRUBIN,TOTAL 0.4 mg/dL (0.2-1)
[2021-12-29 09:57] LABS: TOT PROT 5.1 g/dl (6.4-8.2)
[2021-12-29] MEDS ORDERED: MAGNESIUM OXIDE 400 MG TABLET (FP) PO ONE (11:30)
[2021-12-29] MEDS ORDERED: MECLIZINE HCL 25 MG TABLET (FP) PO ONE (11:34)
[2021-12-29] MEDS ORDERED: MECLIZINE HCL 25 MG TABLET (FP) PO SCH (11:45)
== END 2021-12-29 14:32 | disposition home or self-care (01) | DRG 392 ==
LOC: JER 12:02 → JERBED 16:39 → J7W 21:03
PROVIDERS: ADMIT Internal Medicine; ATTEND Nurse Practitioner Family
DX: K29.20 Alcoholic gastritis without bleeding (principal); E87.2 Acidosis; E87.1 Hypo-osmolality and hyponatremia; F10.20 Alcohol dependence, uncomplicated; I10 Essential (primary) hypertension; E78.5 Hyperlipidemia, unspecified; F41.8 Other specified anxiety disorders; R11.2 Nausea with vomiting, unspecified
CPT/HCPCS: 0241U-QW; 36415; 71046-TC-FY; 80048; 80053; 80307; 81003; 82010; 82962; 83605; 83690; 83735; 83930; 84100; 84443; 84484; 85025; 85610; 85730; 87086; 93005; 93010; 97116-GP; 97161-GP; 99285-25

== ENCOUNTER 2022-03-17 09:52 | Inpatient (IN) | payer OTHER ==
[2022-03-17] MEDS ORDERED: LACTATED RINGERS SOLUTION 1000 ML INFUS.BAG IV ONE (10:42)
[2022-03-17 11:51] LABS: BASO % 0.7 % (0-2.0); EOS % 1.5 % (0-4.5); HEMOGLOBIN 15.8 GM/dL (10.7-15.3); LYMPH % 16.3 % (8-40); MCH 34.7 pg (25.7-33.7); MCHC 34.3 g/dl (32.0-36.0); MEAN CELL VOLUME 101.2 fl (80-96); MEAN PLT VOLUME 7.5 fl (7.5-11.1); MONO % 5.4 % (3.8-10.2); NEUT % 76.1 % (42.8-82.8); PLATELET COUNT 388 10^3/uL (134-434); RBC 4.55 M/mm3 (3.60-5.2); RDW 14.7 % (11.6-15.6); WHITE BLOOD COUNT 11.1 K/mm3 (4.0-10.0)
[2022-03-17 12:10] LABS: VENOUS BASE EXCESS -5.3 mmol/L (-2-2); VENOUS O2 SATURATION 81.3 % (70-80); VENOUS PCO2 35.5 mmHg (38-52); VENOUS PH 7.354 (7.310-7.410)
[2022-03-17 12:17] LABS: CHLORIDE 100 mmol/L (98-107); SODIUM 132 mmol/L (136-145)
[2022-03-17 12:19] LABS: ALBUMIN 3.5 g/dl (3.4-5.0); BLOOD UREA NITROGEN 10.6 mg/dL (7-18); CALCIUM 9.4 mg/dL (8.5-10.1); CO2 20 mmol/L (21-32); GLUCOSE,RANDOM 85 mg/dL (74-106); MAGNESIUM 2.2 mg/dL (1.8-2.4)
[2022-03-17 12:22] LABS: CREATININE 0.6 mg/dL (0.55-1.3); SGPT/ALT 24 U/L (13-61)
[2022-03-17 12:24] LABS: BILIRUBIN,TOTAL 0.6 mg/dL (0.2-1); TOT PROT 7.6 g/dl (6.4-8.2)
[2022-03-17 12:26] LABS: ALK PHOS 111 U/L (45-117)
[2022-03-17 12:31] LABS: ANION GAP 12 MMOL/L (8-16); SGOT/AST 61 U/L (15-37)
[2022-03-17 13:50] LABS: CALCIUM 8.8 mg/dL (8.5-10.1)
[2022-03-17 13:51] LABS: BLOOD UREA NITROGEN 9.6 mg/dL (7-18)
[2022-03-17 13:54] LABS: CREATININE 0.4 mg/dL (0.55-1.3)
[2022-03-17] MEDS ORDERED: THIAMINE HCL 200 MG/2 ML VIAL IVPB ONE (14:18)
[2022-03-17] MEDS ORDERED: THIAMINE HCL 200 MG/2 ML VIAL ONE (14:26)
[2022-03-17] MEDS ORDERED: PANTOPRAZOLE 40 MG TABLET PO ONE (15:16)
[2022-03-17] MEDS: DEXTROSE 5%-0.45% SALINE 1,000 ML IV SCH (15:30)
[2022-03-17] MEDS: PANTOPRAZOLE 40 MG TABLET PO SCH (15:30)
[2022-03-17 16:56] LABS: CHLORIDE 103 mmol/L (98-107); SODIUM 139 mmol/L (136-145)
[2022-03-17 16:57] LABS: ANION GAP 13 MMOL/L (8-16); CALCIUM 8.3 mg/dL (8.5-10.1); CO2 22 mmol/L (21-32)
[2022-03-17 16:58] LABS: GLUCOSE,RANDOM 169 mg/dL (74-106)
[2022-03-17 17:01] LABS: CREATININE 0.6 mg/dL (0.55-1.3)
[2022-03-17] MEDS ORDERED: traZODone HCL 100 MG TABLET (FP) PO PRN (17:21)
[2022-03-17 20:07] LABS: EPI CELLS >36 /uL (0-25.1); HYALINE CASTS 1 /uL (0-3.1); URINE APPEARANCE CLEAR; URINE BACTERIA 274 /uL (0-1359); URINE BILIRUBIN NEGATIVE (NEGATIVE); URINE COLOR YELLOW; URINE GLUCOSE (UA) NEGATIVE (NEGATIVE); URINE KETONE 2+ (NEGATIVE); URINE LEUK ESTERASE TRACE (NEGATIVE); URINE NITRITE NEGATIVE (NEGATIVE); URINE PROTEIN 1+ (NEGATIVE); URINE WBC 33 /uL (0-25.8)
[2022-03-17 20:09] LABS: URINE RBC 35 /uL (0-23.9)
[2022-03-17] MEDS ORDERED: ATORVASTATIN CA 20 MG TABLET (FP) ONE (22:46)
[2022-03-17] MEDS: ATORVASTATIN CA 20 MG TABLET (FP) PO SCH (22:46)
[2022-03-18] MEDS: DEXTROSE 5%-0.45% SALINE 1,000 ML IV SCH ×3 (03:01→23:06)
[2022-03-18 04:00] VITALS: RESP 18; BMI 21.7
[2022-03-18] MEDS ORDERED: FLU VACC QS2022-23(6MOS UP)/PF 60 MCG/0.5 ML SYRINGE IM ONE (10:00)
[2022-03-18] MEDS: ENOXAPARIN NA (PORCINE) 40 MG/0.4 ML DISP.SYRIN SQ SCH (10:22)
[2022-03-18] MEDS: FOLIC ACID 1 MG TABLET (FP) PO SCH (10:22)
[2022-03-18] MEDS: THIAMINE HCL 200 MG/2 ML VIAL IVPB SCH (10:22)
[2022-03-18] MEDS: amLODIPine BESYLATE 5 MG TABLET (FP) PO SCH (10:22)
[2022-03-18] MEDS: CYANOCOBALAMIN (VITAMIN B-12) 100 MCG TABLET PO SCH (10:22)
[2022-03-18] MEDS: PANTOPRAZOLE 40 MG TABLET PO SCH (10:22)
[2022-03-18 11:35] LABS: BASO % 0.6 % (0-2.0); EOS % 2.7 % (0-4.5); HEMATOCRIT 41.4 % (32.4-45.2); HEMOGLOBIN 13.6 GM/dL (10.7-15.3); MCH 33.4 pg (25.7-33.7); MCHC 32.8 g/dl (32.0-36.0); MEAN CELL VOLUME 101.8 fl (80-96); MEAN PLT VOLUME 7.5 fl (7.5-11.1); MONO % 5.6 % (3.8-10.2); NEUT % 77.1 % (42.8-82.8); PLATELET COUNT 334 10^3/uL (134-434); RBC 4.07 M/mm3 (3.60-5.2); RDW 14.7 % (11.6-15.6)
[2022-03-18 11:53] LABS: CALCIUM 8.7 mg/dL (8.5-10.1)
[2022-03-18 11:56] LABS: PHOSPHOROUS 2.8 mg/dL (2.5-4.9)
[2022-03-18 11:57] LABS: BLOOD UREA NITROGEN 10.5 mg/dL (7-18); CREATININE 0.5 mg/dL (0.55-1.3)
[2022-03-18 11:58] LABS: BILIRUBIN,TOTAL 0.3 mg/dL (0.2-1); TOT PROT 5.8 g/dl (6.4-8.2)
[2022-03-18 12:15] LABS: ALBUMIN 2.8 g/dl (3.4-5.0)
[2022-03-18] MEDS ORDERED: TRIMETHOBENZAMIDE HCL 200MG/2ML INJ IM PRN (13:44)
[2022-03-18] MEDS ORDERED: ACETAMINOPHEN 325 MG TABLET (FP) PO ONE (17:05)
[2022-03-18] MEDS ORDERED: guaiFENesin 200 MG/10 ML 10 ML UNIT-DOSE CUPS PO PRN (17:06)
[2022-03-18] MEDS ORDERED: ACETAMINOPHEN 325 MG TABLET (FP) PO PRN (17:06)
[2022-03-18] MEDS: PARoxetine HCL 10 MG TABLET PO SCH (17:19)
[2022-03-18 19:06] LABS: PH,URINE 5.5 (5.0-8.0); URINE APPEARANCE CLEAR; URINE BILIRUBIN NEGATIVE (NEGATIVE); URINE COLOR YELLOW; URINE GLUCOSE (UA) NEGATIVE (NEGATIVE); URINE KETONE NEGATIVE (NEGATIVE); URINE LEUK ESTERASE NEGATIVE (NEGATIVE); URINE NITRITE NEGATIVE (NEGATIVE); URINE PROTEIN NEGATIVE (NEGATIVE); URINE UROBILINOGEN 0.2 mg/dL (0.2-1.0)
[2022-03-18] MEDS: ATORVASTATIN CA 20 MG TABLET (FP) PO SCH (21:12)
[2022-03-19] MEDS: DEXTROSE 5%-0.45% SALINE 1,000 ML IV SCH (06:14)
[2022-03-19] MEDS: amLODIPine BESYLATE 5 MG TABLET (FP) PO SCH (09:22)
[2022-03-19] MEDS: THIAMINE HCL 200 MG/2 ML VIAL IVPB SCH (09:22)
[2022-03-19] MEDS: ENOXAPARIN NA (PORCINE) 40 MG/0.4 ML DISP.SYRIN SQ SCH (09:22)
[2022-03-19] MEDS: PANTOPRAZOLE 40 MG TABLET PO SCH (09:22)
[2022-03-19] MEDS: FOLIC ACID 1 MG TABLET (FP) PO SCH (09:22)
[2022-03-19] MEDS: CYANOCOBALAMIN (VITAMIN B-12) 100 MCG TABLET PO SCH (09:22)
[2022-03-19] MEDS: PARoxetine HCL 10 MG TABLET PO SCH (09:26)
[2022-03-19 11:57] LABS: CALCIUM 8.1 mg/dL (8.5-10.1)
[2022-03-19 11:58] LABS: BLOOD UREA NITROGEN 4.1 mg/dL (7-18)
[2022-03-19 12:00] LABS: CREATININE 0.5 mg/dL (0.55-1.3)
[2022-03-19 14:28] VITALS: BP 136/66; PULSE 80; TEMP 99.2
== END 2022-03-19 16:36 | disposition home or self-care (01) | DRG 641 ==
LOC: JER 09:52 → J6S 15:06 → JERBED 15:39 → UNDOADMOB 15:39 → OBSVTOIN 15:40 → INTOOBSV 15:40 → J6S 03-18 02:56 → JERBED 03-18 02:56
PROVIDERS: ADMIT Internal Medicine; ATTEND Internal Medicine
DX: E87.29 Other acidosis (principal); F10.10 Alcohol abuse, uncomplicated; E78.5 Hyperlipidemia, unspecified; F41.8 Other specified anxiety disorders; R01.1 Cardiac murmur, unspecified; Z86.718 Personal history of other venous thrombosis and embolism
CPT/HCPCS: 36415; 71045-TC-FY; 80048; 80053; 80307; 81003; 82010; 82436; 82803; 83605; 83735; 84100; 84133; 84300; 84443; 84484; 85025; 87086; 87186; 93005; 93010; 93306-TC; 99285-25; C9803-CS; G0008; G0378; Q2036; U0003; U0005

== ENCOUNTER 2022-07-01 10:06 | Observation (INO) | payer OTHER ==
[2022-07-01 10:15] VITALS: BMI 19.6
[2022-07-01] MEDS ORDERED: SODIUM CHLORIDE 0.9% 500 ML INFUS.BAG IV ONE (12:25)
[2022-07-01] MEDS ORDERED: ONDANSETRON 4 MG/2 ML VIAL IVPUSH ONE (12:25)
[2022-07-01] MEDS ORDERED: ONDANSETRON 4 MG/2 ML VIAL ONE (12:42)
[2022-07-01 12:57] LABS: BASO % 0.1 % (0-2.0); EOS % 0.8 % (0-4.5); HEMATOCRIT 46.3 % (32.4-45.2); LYMPH % 23.6 % (8-40); MCH 35.1 pg (25.7-33.7); MCHC 34.7 g/dl (32.0-36.0); MEAN CELL VOLUME 101.3 fl (80-96); MEAN PLT VOLUME 7.7 fl (7.5-11.1); MONO % 7.2 % (3.8-10.2); NEUT % 68.3 % (42.8-82.8); PLATELET COUNT 297 10^3/uL (134-434); RBC 4.57 M/mm3 (3.60-5.2); RDW 15.5 % (11.6-15.6)
[2022-07-01] MEDS ORDERED: THIAMINE HCL 200 MG/2 ML VIAL IVPB ONE (12:57)
[2022-07-01] MEDS: DEXTROSE 5%-LACTATED RINGERS 1,000 ML IV SCH (12:58)
[2022-07-01] MEDS ORDERED: THIAMINE HCL 200 MG/2 ML VIAL ONE (12:59)
[2022-07-01 13:16] LABS: CALCIUM 9.2 mg/dL (8.5-10.1)
[2022-07-01 13:17] LABS: ALBUMIN 3.9 g/dl (3.4-5.0); BLOOD UREA NITROGEN 15.7 mg/dL (7-18); MAGNESIUM 1.9 mg/dL (1.8-2.4)
[2022-07-01 13:20] LABS: CREATININE 0.7 mg/dL (0.55-1.3)
[2022-07-01 13:21] LABS: BILIRUBIN,TOTAL 0.6 mg/dL (0.2-1); TOT PROT 7.2 g/dl (6.4-8.2)
[2022-07-01] MEDS ORDERED: METOCLOPRAMIDE HCL INJECTION 10 MG/2 ML VIAL IVPUSH PRN (15:53)
[2022-07-01] MEDS ORDERED: ACETAMINOPHEN 325 MG TABLET (FP) PO PRN (16:05)
[2022-07-01] MEDS ORDERED: MAG HYDROX/AL HYDROX/SIMETH -MYLANTA- ORAL SUSPENSION PO PRN (16:39)
[2022-07-01] MEDS: NICOTINE 21 MG/24 HOURS TOPICAL PATCH TD SCH (17:06)
[2022-07-01] MEDS: PANTOPRAZOLE SODIUM 40 MG VIAL IVPUSH SCH (17:07)
[2022-07-01] MEDS: SODIUM CHLORIDE 1,000 ML IV SCH (17:09)
[2022-07-01] MEDS ORDERED: NICOTINE 21 MG/24 HOURS TOPICAL PATCH ONE (17:10)
[2022-07-01] MEDS ORDERED: PANTOPRAZOLE SODIUM 40 MG/100 ML BAG IVPB ONE (17:11)
[2022-07-01] MEDS: traZODone HCL 100 MG TABLET (FP) PO PRN ×2 (21:44→22:33)
[2022-07-01] MEDS: ATORVASTATIN CA 20 MG TABLET (FP) PO SCH (22:33)
[2022-07-01] MEDS ORDERED: ATORVASTATIN CA 20 MG TABLET (FP) ONE (22:34)
[2022-07-02 02:10] VITALS: RESP 18
[2022-07-02] MEDS: NICOTINE 21 MG/24 HOURS TOPICAL PATCH TD SCH (09:43)
[2022-07-02] MEDS: PANTOPRAZOLE SODIUM 40 MG VIAL IVPUSH SCH (09:43)
[2022-07-02] MEDS: PARoxetine HCL 10 MG TABLET PO SCH (09:44)
[2022-07-02] MEDS: ENOXAPARIN NA (PORCINE) 40 MG/0.4 ML DISP.SYRIN SQ SCH (09:44)
[2022-07-02] MEDS: THIAMINE HCL 100 MG TABLET (FP) PO SCH (09:44)
[2022-07-02 09:45] LABS: HEMATOCRIT 39.7 % (32.4-45.2); HEMOGLOBIN 13.6 GM/dL (10.7-15.3); MCH 34.9 pg (25.7-33.7); MCHC 34.3 g/dl (32.0-36.0); MEAN CELL VOLUME 101.7 fl (80-96); MEAN PLT VOLUME 7.1 fl (7.5-11.1); PLATELET COUNT 222 10^3/uL (134-434); RBC 3.91 M/mm3 (3.60-5.2); RDW 15.3 % (11.6-15.6); WHITE BLOOD COUNT 5.2 K/mm3 (4.0-10.0)
[2022-07-02] MEDS: amLODIPine BESYLATE 5 MG TABLET (FP) PO SCH (09:46)
[2022-07-02 10:10] LABS: CALCIUM 8.7 mg/dL (8.5-10.1); MAGNESIUM 1.8 mg/dL (1.8-2.4)
[2022-07-02 10:14] LABS: CREATININE 0.5 mg/dL (0.55-1.3)
[2022-07-02 10:16] LABS: BLOOD UREA NITROGEN 12.1 mg/dL (7-18); PHOSPHOROUS 2.8 mg/dL (2.5-4.9)
[2022-07-02] MEDS ORDERED: ONDANSETRON 4 MG TABLET PO PRN (11:09)
[2022-07-02] MEDS: SODIUM CHLORIDE 1,000 ML IV SCH (14:12)
[2022-07-02] MEDS: DEXTROSE 5%-LACTATED RINGERS 1,000 ML IV SCH (14:38)
[2022-07-02] MEDS ORDERED: chlordiazePOXIDE HCL 25 MG CAPSULE PO PRN (15:10)
[2022-07-02] MEDS: ASPIRIN 81 MG CHEWABLE TABLETS PO SCH (15:51)
[2022-07-02] MEDS: ATORVASTATIN CA 20 MG TABLET (FP) PO SCH (21:15)
[2022-07-02] MEDS: traZODone HCL 100 MG TABLET (FP) PO PRN (21:15)
[2022-07-03 06:29] VITALS: BP 139/86; PULSE 85; TEMP 98.1
[2022-07-03 09:28] LABS: BASO % 0.1 % (0-2.0); EOS % 2.4 % (0-4.5); HEMATOCRIT 38.9 % (32.4-45.2); HEMOGLOBIN 13.3 GM/dL (10.7-15.3); LYMPH % 17.1 % (8-40); MCHC 34.3 g/dl (32.0-36.0); MEAN CELL VOLUME 101.8 fl (80-96); MEAN PLT VOLUME 7.5 fl (7.5-11.1); MONO % 3.8 % (3.8-10.2); NEUT % 76.6 % (42.8-82.8); PLATELET COUNT 172 10^3/uL (134-434); RBC 3.82 M/mm3 (3.60-5.2); RDW 15.1 % (11.6-15.6); WHITE BLOOD COUNT 7.2 K/mm3 (4.0-10.0)
[2022-07-03] MEDS: PARoxetine HCL 10 MG TABLET PO SCH (09:45)
[2022-07-03] MEDS: THIAMINE HCL 100 MG TABLET (FP) PO SCH (09:45)
[2022-07-03] MEDS: ASPIRIN 81 MG CHEWABLE TABLETS PO SCH (09:45)
[2022-07-03] MEDS: amLODIPine BESYLATE 5 MG TABLET (FP) PO SCH (09:45)
[2022-07-03] MEDS: NICOTINE 21 MG/24 HOURS TOPICAL PATCH TD SCH (09:46)
[2022-07-03] MEDS: PANTOPRAZOLE SODIUM 40 MG VIAL IVPUSH SCH (09:46)
[2022-07-03] MEDS: ENOXAPARIN NA (PORCINE) 40 MG/0.4 ML DISP.SYRIN SQ SCH (09:47)
[2022-07-03 09:48] LABS: CALCIUM 8.7 mg/dL (8.5-10.1)
[2022-07-03 09:50] LABS: BILIRUBIN,TOTAL 0.3 mg/dL (0.2-1); BLOOD UREA NITROGEN 15.3 mg/dL (7-18); MAGNESIUM 1.7 mg/dL (1.8-2.4); TOT PROT 5.4 g/dl (6.4-8.2)
[2022-07-03 09:53] LABS: CREATININE 0.6 mg/dL (0.55-1.3)
[2022-07-03 10:19] LABS: ALBUMIN 2.8 g/dl (3.4-5.0)
== END 2022-07-03 12:30 | disposition home or self-care (01) ==
LOC: JER 10:06 → JERBED 15:49 → J5S 07-02 01:37
PROVIDERS: ADMIT Internal Medicine
PROC: 3E023GC Introduction of Other Therapeutic Substance into Muscle, Percutaneous Approach (ICD-10-PCS; principal; 2022-07-01)
PROC: 3E033GC Introduction of Other Therapeutic Substance into Peripheral Vein, Percutaneous Approach (ICD-10-PCS; 2022-07-01)
PROC: 3E0337Z Introduction of Electrolytic and Water Balance Substance into Peripheral Vein, Percutaneous Approach (ICD-10-PCS; 2022-07-01)
DX: K29.20 Alcoholic gastritis without bleeding (principal); F10.99 Alcohol use, unspecified with unspecified alcohol-induced disorder; F41.8 Other specified anxiety disorders; I65.29 Occlusion and stenosis of unspecified carotid artery; E78.5 Hyperlipidemia, unspecified; Z86.718 Personal history of other venous thrombosis and embolism; Z79.01 Long term (current) use of anticoagulants
CPT/HCPCS: 0241U-QW; 36415; 71046-TC-FY; 80048; 80053; 83690; 83735; 84100; 85025; 85027; 93005; 93010; 96372; 96374; 96375; 97116-GP; 99285-25; G0378

== ENCOUNTER 2022-09-04 08:10 | Inpatient (IN) | payer OTHER ==
[2022-09-04] MEDS ORDERED: SODIUM CHLORIDE 0.9% 1000 ML INFUS.BAG IV ONE (08:44)
[2022-09-04] MEDS ORDERED: ONDANSETRON 4 MG/2 ML VIAL IVPUSH ONE (08:44)
[2022-09-04] MEDS ORDERED: ONDANSETRON 4 MG/2 ML VIAL ONE (08:59)
[2022-09-04 09:40] LABS: INR 0.98 (0.83-1.09); PROTHROMBIN TIME (PATIENT) 11.4 SEC (9.7-13.0)
[2022-09-04 09:43] LABS: ACTIVATED PTT 37.1 SECONDS (25.2-36.5)
[2022-09-04 09:54] LABS: EOS % 1.2 % (0-4.5); HEMATOCRIT 45.2 % (32.4-45.2); HEMOGLOBIN 15.7 GM/dL (10.7-15.3); LYMPH % 14.8 % (8-40); MCH 34.5 pg (25.7-33.7); MCHC 34.7 g/dl (32.0-36.0); MEAN CELL VOLUME 99.6 fl (80-96); MEAN PLT VOLUME 7.4 fl (7.5-11.1); MONO % 9.7 % (3.8-10.2); NEUT % 73.3 % (42.8-82.8); PLATELET COUNT 274 10^3/uL (134-434); RBC 4.54 M/mm3 (3.60-5.2); RDW 15.3 % (11.6-15.6); WHITE BLOOD COUNT 6.3 K/mm3 (4.0-10.0)
[2022-09-04 09:56] LABS: POTASSIUM 3.9 mmol/L (3.5-5.1)
[2022-09-04 09:58] LABS: ALBUMIN 3.8 g/dl (3.4-5.0); BLOOD UREA NITROGEN 11.3 mg/dL (7-18); CALCIUM 9.3 mg/dL (8.5-10.1)
[2022-09-04 10:01] LABS: CREATININE 0.5 mg/dL (0.55-1.3); MAGNESIUM 1.8 mg/dL (1.8-2.4)
[2022-09-04 10:03] LABS: BILIRUBIN,TOTAL 0.9 mg/dL (0.2-1)
[2022-09-04 13:23] LABS: URINE APPEARANCE CLEAR; URINE BILIRUBIN NEGATIVE (NEGATIVE); URINE COLOR DK YELLOW; URINE GLUCOSE (UA) NEGATIVE (NEGATIVE); URINE KETONE TRACE (NEGATIVE); URINE LEUK ESTERASE NEGATIVE (NEGATIVE); URINE NITRITE NEGATIVE (NEGATIVE); URINE PROTEIN NEGATIVE (NEGATIVE)
[2022-09-04] MEDS: PANTOPRAZOLE SODIUM 40 MG VIAL IVPUSH SCH (16:00)
[2022-09-04] MEDS: LACTATED RINGERS SOLUTION 1,000 ML IV SCH (16:12)
[2022-09-04 16:43] VITALS: BMI 18.1
[2022-09-04] MEDS ORDERED: traZODone HCL 50 MG TABLET (FP) ONE (21:57)
[2022-09-04] MEDS ORDERED: ATORVASTATIN CA 20 MG TABLET (FP) PO SCH (22:00)
[2022-09-04] MEDS: traZODone HCL 100 MG TABLET (FP) PO PRN (22:01)
[2022-09-05 08:53] LABS: BASO % 0.2 % (0-2.0); EOS % 5.7 % (0-4.5); HEMOGLOBIN 14.2 GM/dL (10.7-15.3); LYMPH % 14.8 % (8-40); MCH 34.1 pg (25.7-33.7); MCHC 33.7 g/dl (32.0-36.0); MEAN CELL VOLUME 101.1 fl (80-96); MEAN PLT VOLUME 7.2 fl (7.5-11.1); MONO % 4.1 % (3.8-10.2); NEUT % 75.2 % (42.8-82.8); PLATELET COUNT 207 10^3/uL (134-434); RBC 4.15 M/mm3 (3.60-5.2); RDW 15.6 % (11.6-15.6); WHITE BLOOD COUNT 5.5 K/mm3 (4.0-10.0)
[2022-09-05 09:22] LABS: POTASSIUM 3.5 mmol/L (3.5-5.1)
[2022-09-05 09:24] LABS: CALCIUM 8.5 mg/dL (8.5-10.1)
[2022-09-05 09:25] LABS: ALBUMIN 3.2 g/dl (3.4-5.0); BLOOD UREA NITROGEN 9.1 mg/dL (7-18)
[2022-09-05 09:27] LABS: MAGNESIUM 1.6 mg/dL (1.8-2.4)
[2022-09-05 09:28] LABS: CREATININE 0.5 mg/dL (0.55-1.3); PHOSPHOROUS 3.1 mg/dL (2.5-4.9)
[2022-09-05 09:29] LABS: TOT PROT 5.8 g/dl (6.4-8.2)
[2022-09-05] MEDS ORDERED: PARoxetine HCL 10 MG TABLET ONE (09:31)
[2022-09-05] MEDS: ENOXAPARIN NA (PORCINE) 40 MG/0.4 ML DISP.SYRIN SQ SCH (09:52)
[2022-09-05] MEDS: PANTOPRAZOLE SODIUM 40 MG VIAL IVPUSH SCH (09:52)
[2022-09-05] MEDS: amLODIPine BESYLATE 5 MG TABLET (FP) PO SCH (09:53)
[2022-09-05] MEDS: FOLIC ACID 1 MG TABLET (FP) PO SCH (09:53)
[2022-09-05] MEDS: THIAMINE HCL 100 MG TABLET (FP) PO SCH (09:53)
[2022-09-05] MEDS ORDERED: PARoxetine HCL 30 MG TABLET PO SCH (10:00)
[2022-09-05] MEDS: LACTATED RINGERS SOLUTION 1,000 ML IV SCH (14:37)
[2022-09-05] MEDS ORDERED: traZODone HCL 50 MG TABLET (FP) ONE (21:44)
[2022-09-05] MEDS: traZODone HCL 100 MG TABLET (FP) PO PRN (22:41)
[2022-09-06 07:48] LABS: BASO % 0.3 % (0-2.0); EOS % 6.1 % (0-4.5); HEMOGLOBIN 13.1 GM/dL (10.7-15.3); LYMPH % 23.4 % (8-40); MCH 35.4 pg (25.7-33.7); MCHC 35.3 g/dl (32.0-36.0); MEAN CELL VOLUME 100.2 fl (80-96); MEAN PLT VOLUME 7.7 fl (7.5-11.1); MONO % 6.6 % (3.8-10.2); NEUT % 63.6 % (42.8-82.8); PLATELET COUNT 171 10^3/uL (134-434); RBC 3.69 M/mm3 (3.60-5.2); RDW 14.9 % (11.6-15.6); WHITE BLOOD COUNT 4.6 K/mm3 (4.0-10.0)
[2022-09-06 08:58] LABS: ALBUMIN 2.7 g/dl (3.4-5.0); BILIRUBIN,TOTAL 0.6 mg/dL (0.2-1); BLOOD UREA NITROGEN 7.7 mg/dL (7-18); CALCIUM 8.2 mg/dL (8.5-10.1); CREATININE 0.3 mg/dL (0.55-1.3); POTASSIUM 3.8 mmol/L (3.5-5.1); TOT PROT 5.1 g/dl (6.4-8.2)
[2022-09-06] MEDS: ENOXAPARIN NA (PORCINE) 40 MG/0.4 ML DISP.SYRIN SQ SCH (09:55)
[2022-09-06] MEDS: PANTOPRAZOLE SODIUM 40 MG VIAL IVPUSH SCH (09:55)
[2022-09-06] MEDS: amLODIPine BESYLATE 5 MG TABLET (FP) PO SCH (09:57)
[2022-09-06] MEDS: FOLIC ACID 1 MG TABLET (FP) PO SCH (09:57)
[2022-09-06] MEDS: PAROXETINE HCL 20 MG, PAROXETINE HCL 10 MG PO SCH (09:57)
[2022-09-06] MEDS: THIAMINE HCL 100 MG TABLET (FP) PO SCH (09:57)
[2022-09-06] MEDS ORDERED: ALBUTEROL SO4 HFA INHALER IH PRN (12:53)
[2022-09-06] MEDS: guaiFENesin/CODEINE 10 ML UNIT-DOSE CUPS PO PRN (14:23)
[2022-09-06] MEDS: FLUTICASONE PROP 0.05% 16 GM NASAL SPRAY NS SCH (15:13)
[2022-09-06] MEDS ORDERED: traZODone HCL 50 MG TABLET (FP) ONE (22:08)
[2022-09-06] MEDS: traZODone HCL 100 MG TABLET (FP) PO PRN (23:18)
[2022-09-07] MEDS: PANTOPRAZOLE SODIUM 40 MG VIAL IVPUSH SCH (10:14)
[2022-09-07] MEDS: PAROXETINE HCL 20 MG, PAROXETINE HCL 10 MG PO SCH (10:15)
[2022-09-07] MEDS: ENOXAPARIN NA (PORCINE) 40 MG/0.4 ML DISP.SYRIN SQ SCH (10:17)
[2022-09-07] MEDS: THIAMINE HCL 100 MG TABLET (FP) PO SCH (10:18)
[2022-09-07] MEDS: amLODIPine BESYLATE 5 MG TABLET (FP) PO SCH (10:18)
[2022-09-07] MEDS: FOLIC ACID 1 MG TABLET (FP) PO SCH (10:18)
[2022-09-07] MEDS: FLUTICASONE PROP 0.05% 16 GM NASAL SPRAY NS SCH (10:19)
[2022-09-07] MEDS: guaiFENesin/CODEINE 10 ML UNIT-DOSE CUPS PO PRN (14:56)
[2022-09-08 07:44] LABS: BASO % 0.4 % (0-2.0); HEMATOCRIT 36.8 % (32.4-45.2); HEMOGLOBIN 12.9 GM/dL (10.7-15.3); LYMPH % 30.9 % (8-40); MCH 35.1 pg (25.7-33.7); MCHC 35.1 g/dl (32.0-36.0); MEAN PLT VOLUME 8.2 fl (7.5-11.1); MONO % 9.6 % (3.8-10.2); NEUT % 53.1 % (42.8-82.8); PLATELET COUNT 190 10^3/uL (134-434); RBC 3.68 M/mm3 (3.60-5.2); WHITE BLOOD COUNT 4.6 K/mm3 (4.0-10.0)
[2022-09-08 07:55] LABS: POTASSIUM 3.9 mmol/L (3.5-5.1)
[2022-09-08 07:59] LABS: CALCIUM 8.5 mg/dL (8.5-10.1)
[2022-09-08 08:03] LABS: CREATININE 0.4 mg/dL (0.55-1.3)
[2022-09-08 08:04] LABS: TOT PROT 5.5 g/dl (6.4-8.2)
[2022-09-08 08:06] LABS: BILIRUBIN,TOTAL 0.7 mg/dL (0.2-1)
[2022-09-08] MEDS: FOLIC ACID 1 MG TABLET (FP) PO SCH (09:43)
[2022-09-08] MEDS: amLODIPine BESYLATE 5 MG TABLET (FP) PO SCH (09:43)
[2022-09-08] MEDS: PAROXETINE HCL 20 MG, PAROXETINE HCL 10 MG PO SCH (09:43)
[2022-09-08] MEDS: PANTOPRAZOLE SODIUM 40 MG VIAL IVPUSH SCH (09:45)
[2022-09-08] MEDS: THIAMINE HCL 100 MG TABLET (FP) PO SCH (09:45)
[2022-09-08] MEDS: ENOXAPARIN NA (PORCINE) 40 MG/0.4 ML DISP.SYRIN SQ SCH (09:46)
[2022-09-08] MEDS: FLUTICASONE PROP 0.05% 16 GM NASAL SPRAY NS SCH (09:46)
[2022-09-08 10:56] VITALS: BP 147/91; PULSE 69; RESP 20; TEMP 98.4
== END 2022-09-08 12:30 | disposition home or self-care (01) | DRG 155 ==
LOC: JER 08:10 → JERBED 12:32 → J7W 14:01 → OBSVTOIN 09-06 14:42
PROVIDERS: ADMIT Internal Medicine; ATTEND Internal Medicine
DX: D11.0 Benign neoplasm of parotid gland (principal); Z68.1 Body mass index [BMI] 19.9 or less, adult; R19.7 Diarrhea, unspecified; F41.8 Other specified anxiety disorders; I10 Essential (primary) hypertension; E78.5 Hyperlipidemia, unspecified; R13.10 Dysphagia, unspecified; R53.1 Weakness; R74.8 Abnormal levels of other serum enzymes; R74.01 Elevation of levels of liver transaminase levels; I65.29 Occlusion and stenosis of unspecified carotid artery; R63.0 Anorexia; J44.9 Chronic obstructive pulmonary disease, unspecified; I73.9 Peripheral vascular disease, unspecified; F10.10 Alcohol abuse, uncomplicated
CPT/HCPCS: 0241U-QW; 36415; 70450-TC; 71045-TC-FY; 76705-TC; 80053; 81003; 82103; 82550; 82728; 82962; 83516; 83690; 83735; 84100; 84484; 85025; 85610; 85730; 86038; 86705; 86707; 86708; 86850; 86900; 86901; 87045; 87046; 87086; 87350; 87516; 87517; 87522; 87899; 93005; 93010; 99285-25; G0378

== ENCOUNTER 2022-10-13 11:59 | Inpatient (IN) | payer OTHER ==
[2022-10-13] MEDS ORDERED: ONDANSETRON 4 MG/2 ML VIAL IVPUSH ONE (13:11)
[2022-10-13] MEDS ORDERED: LACTATED RINGERS SOLUTION 1000 ML INFUS.BAG IV ONE (13:11)
[2022-10-13] MEDS ORDERED: FAMOTIDINE 20 MG/50 ML IVPB 20 MG/50 ML MG IVPB ONE ×2 (13:30→14:20)
[2022-10-13] MEDS ORDERED: ALBUTEROL SO4 2.5/IPRATROPIUM 0.5 INH SOL 3 ML VIAL.NEB. NEB ONE (13:31)
[2022-10-13 13:34] LABS: EOS % 0.1 % (0-4.5); HEMATOCRIT 45.6 % (32.4-45.2); HEMOGLOBIN 15.4 GM/dL (10.7-15.3); LYMPH % 18.4 % (8-40); MCH 34.4 pg (25.7-33.7); MCHC 33.7 g/dl (32.0-36.0); MEAN PLT VOLUME 7.4 fl (7.5-11.1); MONO % 6.1 % (3.8-10.2); NEUT % 74.4 % (42.8-82.8); PLATELET COUNT 265 10^3/uL (134-434); RBC 4.47 M/mm3 (3.60-5.2); RDW 14.7 % (11.6-15.6); WHITE BLOOD COUNT 8.3 K/mm3 (4.0-10.0)
[2022-10-13] MEDS: ALBUTEROL SO4 2.5/IPRATROPIUM 0.5 INH SOL 3 ML VIAL.NEB. NEB SCH ×4 (13:40→14:26)
[2022-10-13] MEDS ORDERED: ONDANSETRON 4 MG/2 ML VIAL ONE (13:41)
[2022-10-13] MEDS ORDERED: CYANOCOBALAMIN (VITAMIN B-12) 1000 MCG/1 ML VIAL IM ONE (13:43)
[2022-10-13] MEDS ORDERED: THIAMINE HCL 200 MG/2 ML VIAL IVPB ONE (13:43)
[2022-10-13] MEDS ORDERED: FOLIC ACID 5 MG/1 ML SQ ONE (13:43)
[2022-10-13 13:53] LABS: POTASSIUM 3.6 mmol/L (3.5-5.1)
[2022-10-13 13:56] LABS: ALBUMIN 3.8 g/dl (3.4-5.0); BLOOD UREA NITROGEN 27.4 mg/dL (7-18); CALCIUM 8.6 mg/dL (8.5-10.1)
[2022-10-13 13:57] LABS: MAGNESIUM 2.4 mg/dL (1.8-2.4)
[2022-10-13 13:58] LABS: INR 0.94 (0.83-1.09); PROTHROMBIN TIME (PATIENT) 10.9 SEC (9.7-13.0)
[2022-10-13] MEDS ORDERED: FOLIC ACID INJECTION - 1 MG, THIAMINE HCL 100 MG, MULTIVIT INJECTION ADULT 10 ML in SOD... IVPB ONE (13:58)
[2022-10-13 13:59] LABS: CREATININE 0.8 mg/dL (0.55-1.3); PHOSPHOROUS 5.4 mg/dL (2.5-4.9)
[2022-10-13 14:00] LABS: BILIRUBIN,TOTAL 0.8 mg/dL (0.2-1); TOT PROT 6.6 g/dl (6.4-8.2)
[2022-10-13 14:01] LABS: ACTIVATED PTT 35.6 SECONDS (25.2-36.5)
[2022-10-13] MEDS ORDERED: SODIUM CHLORIDE 0.9% 1000 ML INFUS.BAG IV ONE (14:26)
[2022-10-13] MEDS ORDERED: chlordiazePOXIDE HCL 25 MG CAPSULE PO ONE (15:13)
[2022-10-13] MEDS ORDERED: chlordiazePOXIDE HCL 25 MG CAPSULE ONE (15:28)
[2022-10-13] MEDS ORDERED: chlordiazePOXIDE HCL 25 MG CAPSULE PO PRN (15:40)
[2022-10-13] MEDS ORDERED: ONDANSETRON 4 MG/2 ML VIAL IVPUSH PRN (15:41)
[2022-10-13] MEDS ORDERED: LORazepam 2 MG/ML SDV VIAL IVPUSH PRN (15:45)
[2022-10-13] MEDS ORDERED: LACTATED RINGERS SOLUTION 1,000 ML/1,000 ML INFUS.BAG IV SCH (15:45)
[2022-10-13 18:10] LABS: VENOUS BASE EXCESS -7.1 mmol/L (-2-2); VENOUS O2 SATURATION 97.8 % (70-80); VENOUS PH 7.4 (7.310-7.410)
[2022-10-13 18:11] LABS: EPI CELLS 14 /uL (0-25.1); HYALINE CASTS 0 /uL (0-3.1); URINE APPEARANCE CLEAR; URINE BACTERIA 784 /uL (0-1359); URINE BILIRUBIN NEGATIVE (NEGATIVE); URINE COLOR YELLOW; URINE GLUCOSE (UA) NEGATIVE (NEGATIVE); URINE KETONE 2+ (NEGATIVE); URINE LEUK ESTERASE 1+ (NEGATIVE); URINE NITRITE NEGATIVE (NEGATIVE); URINE PROTEIN TRACE (NEGATIVE); URINE RBC 12 /uL (0-23.9); URINE WBC 385 /uL (0-25.8)
[2022-10-13 18:28] LABS: PHENCYCLIDINE,URINE NEGATIVE (NEGATIVE); URINE BENZODIAZEPINES NEGATIVE (NEGATIVE)
[2022-10-13 18:29] LABS: METHADONE, UR NEGATIVE (NEGATIVE); OPIATES, URI NEGATIVE (NEGATIVE); URINE AMPHETAMINES NEGATIVE (NEGATIVE); URINE BARBITURATES NEGATIVE (NEGATIVE)
[2022-10-13 18:30] LABS: COCAINE, UR NEGATIVE (NEGATIVE)
[2022-10-13] MEDS ORDERED: ACETAMINOPHEN 500 MG TABLET (FP) PO PRN (18:50)
[2022-10-13 20:20] LABS: YEAST NONE SEEN (NEGATIVE)
[2022-10-13] MEDS ORDERED: LORazepam 1 MG TABLET PO SCH (22:00)
[2022-10-13] MEDS ORDERED: chlordiazePOXIDE HCL 25 MG CAPSULE PO SCH (22:00)
[2022-10-14] MEDS ORDERED: LORazepam 1 MG TABLET ONE
[2022-10-14] MEDS: HEPARIN NA (PORCINE) 5,000 UNITS/ML 1ML VIAL SQ SCH ×3 (00:12→22:54)
[2022-10-14 06:31] LABS: BASO % 0.2 % (0-2.0); EOS % 1.2 % (0-4.5); HEMOGLOBIN 12.6 GM/dL (10.7-15.3); LYMPH % 33.4 % (8-40); MCH 34.1 pg (25.7-33.7); MCHC 33.1 g/dl (32.0-36.0); MEAN CELL VOLUME 103.1 fl (80-96); MEAN PLT VOLUME 7.3 fl (7.5-11.1); NEUT % 58.2 % (42.8-82.8); PLATELET COUNT 167 10^3/uL (134-434); RBC 3.69 M/mm3 (3.60-5.2); RDW 14.5 % (11.6-15.6); WHITE BLOOD COUNT 6.1 K/mm3 (4.0-10.0)
[2022-10-14 06:51] LABS: POTASSIUM 3.7 mmol/L (3.5-5.1)
[2022-10-14 06:55] LABS: BLOOD UREA NITROGEN 15.3 mg/dL (7-18)
[2022-10-14 06:58] LABS: CREATININE 0.4 mg/dL (0.55-1.3)
[2022-10-14] MEDS ORDERED: LORazepam 2 MG/ML SDV VIAL IVPUSH PRN (09:02)
[2022-10-14] MEDS ORDERED: LORazepam 1 MG TABLET PO SCH (09:03)
[2022-10-14] MEDS ORDERED: THIAMINE HCL 100 MG TABLET (FP) ONE (09:05)
[2022-10-14] MEDS ORDERED: HEPARIN NA (PORCINE) 5,000 UNITS/ML 1ML VIAL ONE ×2 (09:05)
[2022-10-14] MEDS ORDERED: FOLIC ACID 1 MG TABLET (FP) ONE (09:05)
[2022-10-14] MEDS ORDERED: ASPIRIN COATED 81 MG TABLET.EC ONE (09:05)
[2022-10-14] MEDS ORDERED: ACETAMINOPHEN 500 MG TABLET (FP) ONE (09:08)
[2022-10-14] MEDS: ASPIRIN COATED 81 MG TABLET.EC PO SCH (09:14)
[2022-10-14] MEDS: THIAMINE HCL 100 MG TABLET (FP) PO SCH (09:15)
[2022-10-14] MEDS: FOLIC ACID 1 MG TABLET (FP) PO SCH (09:15)
[2022-10-14 11:19] LABS: BILIRUBIN,DIRECT 0.4 mg/dL (0.0-0.2)
[2022-10-14 11:21] LABS: BILIRUBIN,TOTAL 1.1 mg/dL (0.2-1); TOT PROT 4.8 g/dl (6.4-8.2)
[2022-10-14 11:23] LABS: ALBUMIN 2.7 g/dl (3.4-5.0)
[2022-10-14 14:56] VITALS: BMI 19.3
[2022-10-14] MEDS ORDERED: SODIUM CHLORIDE 1,000 ML IV SCH (17:45)
[2022-10-14] MEDS ORDERED: MELATONIN 5 MG TABLETS PO PRN (18:08)
[2022-10-14] MEDS: NICOTINE 21 MG/24 HOURS TOPICAL PATCH TD SCH (18:18)
[2022-10-14] MEDS: LORazepam 1 MG TABLET PO SCH (22:54)
[2022-10-15] MEDS: LORazepam 1 MG TABLET PO SCH ×3 (05:29→21:58)
[2022-10-15] MEDS ORDERED: FAMOTIDINE 10 MG TABLET PO SCH (10:00)
[2022-10-15 11:00] LABS: BASO % 0.2 % (0-2.0); EOS % 2.1 % (0-4.5); HEMATOCRIT 40.9 % (32.4-45.2); HEMOGLOBIN 13.3 GM/dL (10.7-15.3); LYMPH % 24.3 % (8-40); MCH 33.9 pg (25.7-33.7); MCHC 32.5 g/dl (32.0-36.0); MEAN CELL VOLUME 104.2 fl (80-96); MEAN PLT VOLUME 7.7 fl (7.5-11.1); MONO % 4.3 % (3.8-10.2); NEUT % 69.1 % (42.8-82.8); PLATELET COUNT 168 10^3/uL (134-434); RBC 3.93 M/mm3 (3.60-5.2); RDW 14.3 % (11.6-15.6); WHITE BLOOD COUNT 5.5 K/mm3 (4.0-10.0)
[2022-10-15 11:14] LABS: POTASSIUM 3.7 mmol/L (3.5-5.1)
[2022-10-15 11:36] LABS: BLOOD UREA NITROGEN 9.2 mg/dL (7-18); CALCIUM 8.7 mg/dL (8.5-10.1)
[2022-10-15 11:37] LABS: ALBUMIN 2.8 g/dl (3.4-5.0)
[2022-10-15 11:39] LABS: CREATININE 0.6 mg/dL (0.55-1.3)
[2022-10-15 11:41] LABS: BILIRUBIN,TOTAL 0.6 mg/dL (0.2-1); TOT PROT 5.1 g/dl (6.4-8.2)
[2022-10-15] MEDS: FOLIC ACID 1 MG TABLET (FP) PO SCH (11:58)
[2022-10-15] MEDS: PANTOPRAZOLE 40 MG TABLET PO SCH (11:58)
[2022-10-15] MEDS: THIAMINE HCL 100 MG TABLET (FP) PO SCH (11:58)
[2022-10-15] MEDS: HEPARIN NA (PORCINE) 5,000 UNITS/ML 1ML VIAL SQ SCH ×2 (11:58→21:59)
[2022-10-15] MEDS: ASPIRIN COATED 81 MG TABLET.EC PO SCH (11:58)
[2022-10-15] MEDS: NICOTINE 21 MG/24 HOURS TOPICAL PATCH TD SCH (11:59)
[2022-10-15] MEDS: MIRTAZAPINE 15 MG TABLET (FP) PO SCH (21:58)
[2022-10-16] MEDS: LORazepam 1 MG TABLET PO SCH (05:46)
[2022-10-16 09:33] LABS: BASO % 0.2 % (0-2.0); EOS % 1.8 % (0-4.5); HEMATOCRIT 38.6 % (32.4-45.2); HEMOGLOBIN 13.2 GM/dL (10.7-15.3); MCH 34.6 pg (25.7-33.7); MCHC 34.1 g/dl (32.0-36.0); MEAN CELL VOLUME 101.5 fl (80-96); MEAN PLT VOLUME 7.4 fl (7.5-11.1); MONO % 6.4 % (3.8-10.2); NEUT % 63.6 % (42.8-82.8); PLATELET COUNT 157 10^3/uL (134-434); RBC 3.81 M/mm3 (3.60-5.2); RDW 14.6 % (11.6-15.6); WHITE BLOOD COUNT 4.6 K/mm3 (4.0-10.0)
[2022-10-16 10:24] LABS: POTASSIUM 3.8 mmol/L (3.5-5.1)
[2022-10-16 10:28] LABS: ALBUMIN 2.6 g/dl (3.4-5.0); MAGNESIUM 1.8 mg/dL (1.8-2.4)
[2022-10-16 10:31] LABS: CREATININE 0.5 mg/dL (0.55-1.3)
[2022-10-16 10:33] LABS: BILIRUBIN,TOTAL 0.7 mg/dL (0.2-1); TOT PROT 5.2 g/dl (6.4-8.2)
[2022-10-16] MEDS: HEPARIN NA (PORCINE) 5,000 UNITS/ML 1ML VIAL SQ SCH ×2 (11:59→22:31)
[2022-10-16] MEDS: NICOTINE 21 MG/24 HOURS TOPICAL PATCH TD SCH (11:59)
[2022-10-16] MEDS: ASPIRIN COATED 81 MG TABLET.EC PO SCH (11:59)
[2022-10-16] MEDS: PANTOPRAZOLE 40 MG TABLET PO SCH (11:59)
[2022-10-16] MEDS: FOLIC ACID 1 MG TABLET (FP) PO SCH (12:00)
[2022-10-16] MEDS: THIAMINE HCL 100 MG TABLET (FP) PO SCH (12:12)
[2022-10-16] MEDS ORDERED: LORazepam 0.5 MG TABLET PO PRN (14:37)
[2022-10-16] MEDS: MIRTAZAPINE 15 MG TABLET (FP) PO SCH (22:30)
[2022-10-17 06:39] VITALS: PULSE 89
[2022-10-17 08:53] LABS: POTASSIUM 4.1 mmol/L (3.5-5.1)
[2022-10-17 08:55] LABS: CALCIUM 8.9 mg/dL (8.5-10.1)
[2022-10-17 08:56] LABS: BLOOD UREA NITROGEN 9.7 mg/dL (7-18); MAGNESIUM 1.7 mg/dL (1.8-2.4)
[2022-10-17 08:59] LABS: CREATININE 0.4 mg/dL (0.55-1.3); PHOSPHOROUS 2.1 mg/dL (2.5-4.9)
[2022-10-17] MEDS: HEPARIN NA (PORCINE) 5,000 UNITS/ML 1ML VIAL SQ SCH (09:47)
[2022-10-17] MEDS: FOLIC ACID 1 MG TABLET (FP) PO SCH (09:47)
[2022-10-17] MEDS: PANTOPRAZOLE 40 MG TABLET PO SCH (09:47)
[2022-10-17] MEDS: NICOTINE 21 MG/24 HOURS TOPICAL PATCH TD SCH (09:47)
[2022-10-17] MEDS: ASPIRIN COATED 81 MG TABLET.EC PO SCH (09:47)
[2022-10-17] MEDS: THIAMINE HCL 100 MG TABLET (FP) PO SCH (09:47)
[2022-10-17 10:31] VITALS: BP 145/92; RESP 18; TEMP 98.6
== END 2022-10-17 13:26 | disposition home or self-care (01) | DRG 896 ==
LOC: JER 11:59 → JERBED 15:01 → J5S 10-14 14:47
PROVIDERS: ADMIT Internal Medicine
PROC: HZ2ZZZZ Detoxification Services for Substance Abuse Treatment (ICD-10-PCS; principal; 2022-10-13)
DX: F10.239 Alcohol dependence with withdrawal, unspecified (principal); E43 Unspecified severe protein-calorie malnutrition; Z68.1 Body mass index [BMI] 19.9 or less, adult; E87.20 Acidosis, unspecified; F41.8 Other specified anxiety disorders; I10 Essential (primary) hypertension; E78.5 Hyperlipidemia, unspecified; J44.9 Chronic obstructive pulmonary disease, unspecified; K05.6 Periodontal disease, unspecified; R62.7 Adult failure to thrive; R13.19 Other dysphagia; E88.89 Other specified metabolic disorders; K21.9 Gastro-esophageal reflux disease without esophagitis; K76.0 Fatty (change of) liver, not elsewhere classified; K29.20 Alcoholic gastritis without bleeding; R94.31 Abnormal electrocardiogram [ECG] [EKG]; R11.2 Nausea with vomiting, unspecified; I73.9 Peripheral vascular disease, unspecified; K29.80 Duodenitis without bleeding; E86.0 Dehydration; Z98.890 Other specified postprocedural states; Z86.718 Personal history of other venous thrombosis and embolism
CPT/HCPCS: 0241U-QW; 36415; 71045-TC-FY; 74177-TC; 76705-TC; 80048; 80053; 80076; 80307; 81003; 82010; 82550; 82803; 82977; 83690; 83735; 84100; 85025; 85610; 85730; 86140; 87045; 87046; 87205; 87209; 87324; 87449; 93005; 93010; 97116-GP; 97162-GP; 99285-25; J1644; Q9967

== ENCOUNTER 2023-01-11 09:36 | Inpatient (IN) | payer OTHER ==
[2023-01-11 11:13] LABS: BASO % 0.3 % (0-2.0); EOS % 0.3 % (0-4.5); HEMOGLOBIN 15.6 GM/dL (10.7-15.3); LYMPH % 16.8 % (8-40); MCH 35.8 pg (25.7-33.7); MCHC 35.3 g/dl (32.0-36.0); MEAN CELL VOLUME 101.2 fl (80-96); NEUT % 74.6 % (42.8-82.8); PLATELET COUNT 377 10^3/uL (134-434); RBC 4.35 M/mm3 (3.60-5.2); RDW 15.3 % (11.6-15.6); WHITE BLOOD COUNT 6.7 K/mm3 (4.0-10.0)
[2023-01-11 11:23] LABS: INR 0.98 (0.83-1.09); PROTHROMBIN TIME (PATIENT) 11.4 SEC (9.7-13.0)
[2023-01-11 11:25] LABS: ACTIVATED PTT 39.5 SECONDS (25.2-36.5)
[2023-01-11 11:37] LABS: VENOUS BASE EXCESS -11.4 mmol/L (-2-2); VENOUS O2 SATURATION 88.6 % (70-80); VENOUS PCO2 22.3 mmHg (38-52); VENOUS PH 7.342 (7.310-7.410)
[2023-01-11 11:51] LABS: CHLORIDE 97 mmol/L (98-107); POTASSIUM 3.7 mmol/L (3.5-5.1); SODIUM 133 mmol/L (136-145)
[2023-01-11 11:54] LABS: CALCIUM 8.2 mg/dL (8.5-10.1)
[2023-01-11 11:55] LABS: ALBUMIN 3.2 g/dl (3.4-5.0); ANION GAP 22 MMOL/L (8-16); BLOOD UREA NITROGEN 12.8 mg/dL (7-18); CO2 14 mmol/L (21-32); GLUCOSE,RANDOM 80 mg/dL (74-106); MAGNESIUM 1.9 mg/dL (1.8-2.4)
[2023-01-11 11:58] LABS: CREATININE 0.6 mg/dL (0.55-1.3); SGOT/AST 40 U/L (15-37); SGPT/ALT 33 U/L (13-61)
[2023-01-11 11:59] LABS: BILIRUBIN,TOTAL 0.8 mg/dL (0.2-1)
[2023-01-11 12:01] LABS: ALK PHOS 133 U/L (45-117)
[2023-01-11 12:03] LABS: N-TERMINAL BNP 537.8 pg/ml (5-125)
[2023-01-11] MEDS ORDERED: THIAMINE HCL 200 MG/2 ML VIAL IVPB ONE (13:26)
[2023-01-11] MEDS ORDERED: DEXTROSE 5%-NORMAL SALINE 1,000 ML IV ONE (13:27)
[2023-01-11] MEDS ORDERED: THIAMINE HCL 200 MG/2 ML VIAL ONE (13:39)
[2023-01-11] MEDS ORDERED: ONDANSETRON 4 MG/2 ML VIAL IVPB ONE (14:20)
[2023-01-11] MEDS ORDERED: ONDANSETRON 4 MG/2 ML VIAL ONE (14:22)
[2023-01-11] MEDS: LACTATED RINGERS SOLUTION 1,000 ML/1,000 ML INFUS.BAG IV SCH (15:20)
[2023-01-11 16:33] LABS: PH,URINE 5.5 (5.0-8.0); URINE APPEARANCE CLEAR; URINE BILIRUBIN NEGATIVE (NEGATIVE); URINE COLOR YELLOW; URINE GLUCOSE (UA) NEGATIVE (NEGATIVE); URINE KETONE 3+ (NEGATIVE); URINE LEUK ESTERASE NEGATIVE (NEGATIVE); URINE NITRITE NEGATIVE (NEGATIVE); URINE PROTEIN NEGATIVE (NEGATIVE)
[2023-01-11] MEDS: amLODIPine BESYLATE 5 MG TABLET (FP) PO SCH (16:45)
[2023-01-11] MEDS: PARoxetine HCL 10 MG TABLET PO SCH (16:45)
[2023-01-11] MEDS: ASPIRIN COATED 81 MG TABLET.EC PO SCH (16:45)
[2023-01-11] MEDS: traZODone HCL 50 MG TABLET (FP) PO SCH (21:51)
[2023-01-11] MEDS: TRIMETHOBENZAMIDE HCL 200MG/2ML INJ IM PRN (21:51)
[2023-01-11] MEDS: ROSUVASTATIN CA 20 MG TABLET PO SCH (21:51)
[2023-01-12] MEDS: LACTATED RINGERS SOLUTION 1,000 ML/1,000 ML INFUS.BAG IV SCH ×2 (01:39→21:12)
[2023-01-12 08:59] LABS: BASO % 0.3 % (0-2.0); EOS % 2.1 % (0-4.5); HEMATOCRIT 37.3 % (32.4-45.2); HEMOGLOBIN 12.7 GM/dL (10.7-15.3); LYMPH % 33.6 % (8-40); MCHC 33.9 g/dl (32.0-36.0); MEAN CELL VOLUME 103.3 fl (80-96); MONO % 10.1 % (3.8-10.2); NEUT % 53.9 % (42.8-82.8); PLATELET COUNT 323 10^3/uL (134-434); RBC 3.61 M/mm3 (3.60-5.2); RDW 15.7 % (11.6-15.6); WHITE BLOOD COUNT 5.9 K/mm3 (4.0-10.0)
[2023-01-12 09:17] LABS: POTASSIUM 3.7 mmol/L (3.5-5.1)
[2023-01-12 09:25] LABS: CALCIUM 7.5 mg/dL (8.5-10.1)
[2023-01-12 09:26] LABS: BLOOD UREA NITROGEN 6.5 mg/dL (7-18); MAGNESIUM 1.6 mg/dL (1.8-2.4)
[2023-01-12 09:29] LABS: CREATININE 0.4 mg/dL (0.55-1.3); PHOSPHOROUS 2.2 mg/dL (2.5-4.9); TOT PROT 4.4 g/dl (6.4-8.2)
[2023-01-12 09:31] LABS: BILIRUBIN,TOTAL 0.7 mg/dL (0.2-1)
[2023-01-12 09:34] LABS: ALBUMIN 2.3 g/dl (3.4-5.0)
[2023-01-12] MEDS: ENOXAPARIN NA (PORCINE) 40 MG/0.4 ML DISP.SYRIN SQ SCH (10:44)
[2023-01-12] MEDS: NICOTINE 21 MG/24 HOURS TOPICAL PATCH TD SCH (10:44)
[2023-01-12] MEDS: ASPIRIN COATED 81 MG TABLET.EC PO SCH (10:45)
[2023-01-12] MEDS: amLODIPine BESYLATE 5 MG TABLET (FP) PO SCH (10:45)
[2023-01-12] MEDS: PARoxetine HCL 10 MG TABLET PO SCH (11:44)
[2023-01-12] MEDS: chlordiazePOXIDE HCL 25 MG CAPSULE PO SCH ×2 (14:18→21:14)
[2023-01-12] MEDS ORDERED: MAGNESIUM 1GM/D5W 100ML - 100 ML IVPB IVPB ONE (15:31)
[2023-01-12] MEDS: ROSUVASTATIN CA 20 MG TABLET PO SCH (21:14)
[2023-01-12] MEDS: traZODone HCL 50 MG TABLET (FP) PO SCH (21:14)
[2023-01-13] MEDS: chlordiazePOXIDE HCL 25 MG CAPSULE PO SCH ×4 (05:33→21:17)
[2023-01-13] MEDS ORDERED: MAGNESIUM 2GM/50ML STERILE WATER IVPB IVPB ONE (08:06)
[2023-01-13] MEDS ORDERED: NAPH,MB-DB/K PH,MBDB POWDER PACKET PO ONE (08:07)
[2023-01-13 08:11] LABS: CALCIUM 7.6 mg/dL (8.5-10.1); POTASSIUM 3.9 mmol/L (3.5-5.1)
[2023-01-13 08:12] LABS: BLOOD UREA NITROGEN 8.3 mg/dL (7-18)
[2023-01-13 08:15] LABS: CREATININE 0.3 mg/dL (0.55-1.3)
[2023-01-13] MEDS ORDERED: ALBUTEROL SO4 HFA INHALER IH PRN (10:53)
[2023-01-13] MEDS: ASPIRIN COATED 81 MG TABLET.EC PO SCH (12:35)
[2023-01-13] MEDS: NICOTINE 21 MG/24 HOURS TOPICAL PATCH TD SCH (12:35)
[2023-01-13] MEDS: ENOXAPARIN NA (PORCINE) 40 MG/0.4 ML DISP.SYRIN SQ SCH (12:36)
[2023-01-13] MEDS: PANTOPRAZOLE 40 MG TABLET PO SCH (12:36)
[2023-01-13] MEDS: amLODIPine BESYLATE 5 MG TABLET (FP) PO SCH (12:36)
[2023-01-13] MEDS: PARoxetine HCL 10 MG TABLET PO SCH (12:36)
[2023-01-13] MEDS: POLYETHYLENE GLYCOL (HEALTHYLAX) 3350 17 GM PACKET PO SCH (13:57)
[2023-01-13] MEDS ORDERED: ACETAMINOPHEN 1000 MG/100 ML BAG IVPB ONE (15:07)
[2023-01-13 15:10] VITALS: BMI 17.8
[2023-01-13] MEDS: BUDESONIDE/FORMETEROL FUMARATE 160/4.5 mcg INHALER IH SCH ×2 (15:20→21:19)
[2023-01-13] MEDS: TRIMETHOBENZAMIDE HCL 200MG/2ML INJ IM PRN (18:15)
[2023-01-13] MEDS: traZODone HCL 50 MG TABLET (FP) PO SCH (21:18)
[2023-01-13] MEDS: ROSUVASTATIN CA 20 MG TABLET PO SCH (21:18)
[2023-01-14] MEDS: chlordiazePOXIDE HCL 10 MG CAPSULE PO SCH ×3 (05:59→22:12)
[2023-01-14] MEDS ORDERED: ALBUTEROL SO4 0.083% IH SOL 2.5 MG/3 ML VIAL.NEB. NEB ONE (08:13)
[2023-01-14] MEDS ORDERED: guaiFENesin/CODEINE 5 ML UNIT-DOSE CUPS PO STA (08:15)
[2023-01-14] MEDS: POLYETHYLENE GLYCOL (HEALTHYLAX) 3350 17 GM PACKET PO SCH (09:45)
[2023-01-14] MEDS: NICOTINE 21 MG/24 HOURS TOPICAL PATCH TD SCH (09:45)
[2023-01-14] MEDS: ENOXAPARIN NA (PORCINE) 40 MG/0.4 ML DISP.SYRIN SQ SCH (09:45)
[2023-01-14] MEDS: BUDESONIDE/FORMETEROL FUMARATE 160/4.5 mcg INHALER IH SCH ×2 (09:46→22:12)
[2023-01-14] MEDS: PANTOPRAZOLE 40 MG TABLET PO SCH (09:46)
[2023-01-14] MEDS: PARoxetine HCL 10 MG TABLET PO SCH (09:46)
[2023-01-14] MEDS: amLODIPine BESYLATE 5 MG TABLET (FP) PO SCH (09:46)
[2023-01-14] MEDS: ASPIRIN COATED 81 MG TABLET.EC PO SCH (09:46)
[2023-01-14] MEDS ORDERED: guaiFENesin/D-M SUGAR-FREE/ACLHOL-FREE (200 MG/10 MG) 5 ML PO PRN (10:00)
[2023-01-14] MEDS: TRIMETHOBENZAMIDE HCL 200MG/2ML INJ IM PRN (14:54)
[2023-01-14] MEDS: traZODone HCL 50 MG TABLET (FP) PO SCH (22:12)
[2023-01-14] MEDS: ROSUVASTATIN CA 20 MG TABLET PO SCH (22:13)
[2023-01-15] MEDS: PANTOPRAZOLE 40 MG TABLET PO SCH (09:23)
[2023-01-15] MEDS: amLODIPine BESYLATE 5 MG TABLET (FP) PO SCH (09:23)
[2023-01-15] MEDS: ASPIRIN COATED 81 MG TABLET.EC PO SCH (09:23)
[2023-01-15] MEDS: PARoxetine HCL 10 MG TABLET PO SCH (09:23)
[2023-01-15] MEDS: BUDESONIDE/FORMETEROL FUMARATE 160/4.5 mcg INHALER IH SCH ×2 (09:24→23:05)
[2023-01-15] MEDS: POLYETHYLENE GLYCOL (HEALTHYLAX) 3350 17 GM PACKET PO SCH (09:24)
[2023-01-15] MEDS: ENOXAPARIN NA (PORCINE) 40 MG/0.4 ML DISP.SYRIN SQ SCH (09:24)
[2023-01-15] MEDS: NICOTINE 21 MG/24 HOURS TOPICAL PATCH TD SCH (09:24)
[2023-01-15] MEDS: traZODone HCL 50 MG TABLET (FP) PO SCH (23:03)
[2023-01-15] MEDS: chlordiazePOXIDE 5 MG CAPSULE PO SCH (23:03)
[2023-01-15] MEDS: ROSUVASTATIN CA 20 MG TABLET PO SCH (23:03)
[2023-01-16] MEDS: PARoxetine HCL 10 MG TABLET PO SCH (09:52)
[2023-01-16] MEDS: PANTOPRAZOLE 40 MG TABLET PO SCH (09:52)
[2023-01-16] MEDS: NICOTINE 21 MG/24 HOURS TOPICAL PATCH TD SCH (09:52)
[2023-01-16] MEDS: POLYETHYLENE GLYCOL (HEALTHYLAX) 3350 17 GM PACKET PO SCH (09:52)
[2023-01-16] MEDS: ASPIRIN COATED 81 MG TABLET.EC PO SCH (09:52)
[2023-01-16] MEDS: chlordiazePOXIDE 5 MG CAPSULE PO SCH ×2 (09:53→21:43)
[2023-01-16] MEDS: amLODIPine BESYLATE 5 MG TABLET (FP) PO SCH (09:53)
[2023-01-16] MEDS: ENOXAPARIN NA (PORCINE) 40 MG/0.4 ML DISP.SYRIN SQ SCH (09:54)
[2023-01-16] MEDS: BUDESONIDE/FORMETEROL FUMARATE 160/4.5 mcg INHALER IH SCH ×2 (09:58→22:59)
[2023-01-16] MEDS ORDERED: ALBUTEROL SO4 HFA INHALER IH PRN (19:19)
[2023-01-16] MEDS ORDERED: guaiFENesin/D-M SUGAR-FREE/ACLHOL-FREE (200 MG/10 MG) 5 ML PO PRN (19:19)
[2023-01-16] MEDS: ROSUVASTATIN CA 20 MG TABLET PO SCH (21:44)
[2023-01-17] MEDS: ENOXAPARIN NA (PORCINE) 40 MG/0.4 ML DISP.SYRIN SQ SCH (09:09)
[2023-01-17] MEDS: ASPIRIN COATED 81 MG TABLET.EC PO SCH (09:10)
[2023-01-17] MEDS: amLODIPine BESYLATE 5 MG TABLET (FP) PO SCH (09:10)
[2023-01-17] MEDS: PANTOPRAZOLE 40 MG TABLET PO SCH (09:10)
[2023-01-17] MEDS: chlordiazePOXIDE 5 MG CAPSULE PO SCH (09:11)
[2023-01-17] MEDS: PARoxetine HCL 10 MG TABLET PO SCH (09:11)
[2023-01-17] MEDS: BUDESONIDE/FORMETEROL FUMARATE 160/4.5 mcg INHALER IH SCH ×2 (09:12→21:43)
[2023-01-17] MEDS: NICOTINE 21 MG/24 HOURS TOPICAL PATCH TD SCH (09:12)
[2023-01-17] MEDS: POLYETHYLENE GLYCOL (HEALTHYLAX) 3350 17 GM PACKET PO SCH (09:12)
[2023-01-17 09:20] LABS: BASO % 0.7 % (0-2.0); EOS % 1.7 % (0-4.5); HEMATOCRIT 36.7 % (32.4-45.2); HEMOGLOBIN 12.4 GM/dL (10.7-15.3); LYMPH % 20.8 % (8-40); MCH 35.3 pg (25.7-33.7); MCHC 33.9 g/dl (32.0-36.0); MEAN CELL VOLUME 104.1 fl (80-96); MONO % 8.6 % (3.8-10.2); NEUT % 68.2 % (42.8-82.8); PLATELET COUNT 344 10^3/uL (134-434); RBC 3.53 M/mm3 (3.60-5.2); WHITE BLOOD COUNT 8.2 K/mm3 (4.0-10.0)
[2023-01-17 09:50] LABS: POTASSIUM 4.9 mmol/L (3.5-5.1)
[2023-01-17 09:58] LABS: ALBUMIN 2.6 g/dl (3.4-5.0); CALCIUM 8.5 mg/dL (8.5-10.1)
[2023-01-17 09:59] LABS: BLOOD UREA NITROGEN 14.4 mg/dL (7-18)
[2023-01-17 10:02] LABS: CREATININE 0.3 mg/dL (0.55-1.3); PHOSPHOROUS 5.1 mg/dL (2.5-4.9)
[2023-01-17 10:03] LABS: BILIRUBIN,TOTAL 0.2 mg/dL (0.2-1); TOT PROT 5.5 g/dl (6.4-8.2)
[2023-01-17] MEDS: AMINO ACIDS/PROTEIN HYDROLYS 30 ML LIQUID.PKT PO SCH (18:15)
[2023-01-17] MEDS: ROSUVASTATIN CA 20 MG TABLET PO SCH (21:42)
[2023-01-18 09:17] LABS: RBC 3.35 M/mm3 (3.60-5.2); WHITE BLOOD COUNT 7.8 K/mm3 (4.0-10.0)
[2023-01-18 09:18] LABS: BASO % 0.4 % (0-2.0); EOS % 1.2 % (0-4.5); HEMATOCRIT 34.9 % (32.4-45.2); HEMOGLOBIN 11.9 GM/dL (10.7-15.3); LYMPH % 19.8 % (8-40); MCH 35.7 pg (25.7-33.7); MCHC 34.2 g/dl (32.0-36.0); MEAN CELL VOLUME 104.3 fl (80-96); MEAN PLT VOLUME 7.5 fl (7.5-11.1); MONO % 10.2 % (3.8-10.2); NEUT % 68.4 % (42.8-82.8); PLATELET COUNT 426 10^3/uL (134-434); RDW 16.1 % (11.6-15.6)
[2023-01-18 09:48] LABS: POTASSIUM 4.5 mmol/L (3.5-5.1)
[2023-01-18 10:06] LABS: ALBUMIN 2.6 g/dl (3.4-5.0); BLOOD UREA NITROGEN 18.2 mg/dL (7-18); CALCIUM 8.6 mg/dL (8.5-10.1); MAGNESIUM 2.1 mg/dL (1.8-2.4)
[2023-01-18 10:09] LABS: CREATININE 0.4 mg/dL (0.55-1.3)
[2023-01-18 10:10] LABS: BILIRUBIN,TOTAL 0.2 mg/dL (0.2-1)
[2023-01-18 10:11] LABS: TOT PROT 5.6 g/dl (6.4-8.2)
[2023-01-18] MEDS: NICOTINE 21 MG/24 HOURS TOPICAL PATCH TD SCH (10:18)
[2023-01-18] MEDS: AMINO ACIDS/PROTEIN HYDROLYS 30 ML LIQUID.PKT PO SCH ×2 (10:18→17:37)
[2023-01-18] MEDS: PANTOPRAZOLE 40 MG TABLET PO SCH (10:19)
[2023-01-18] MEDS: BUDESONIDE/FORMETEROL FUMARATE 160/4.5 mcg INHALER IH SCH (10:19)
[2023-01-18] MEDS: amLODIPine BESYLATE 5 MG TABLET (FP) PO SCH (10:19)
[2023-01-18] MEDS: PARoxetine HCL 10 MG TABLET PO SCH (10:19)
[2023-01-18] MEDS: ENOXAPARIN NA (PORCINE) 40 MG/0.4 ML DISP.SYRIN SQ SCH (10:19)
[2023-01-18] MEDS: POLYETHYLENE GLYCOL (HEALTHYLAX) 3350 17 GM PACKET PO SCH (10:19)
[2023-01-18] MEDS: ASPIRIN COATED 81 MG TABLET.EC PO SCH (10:19)
[2023-01-18 15:06] VITALS: RESP 16; TEMP 98.6
[2023-01-18 20:07] VITALS: BP 131/68; PULSE 86
== END 2023-01-18 21:41 | disposition home health service (06) | DRG 642 ==
LOC: JER 09:36 → JERBED 14:09 → J4W 16:08 → J8W 01-16 18:49
PROVIDERS: ADMIT Internal Medicine; ATTEND Nurse Practitioner Acute Care
DX: E88.89 Other specified metabolic disorders (principal); E43 Unspecified severe protein-calorie malnutrition; E87.29 Other acidosis; Z68.1 Body mass index [BMI] 19.9 or less, adult; T73.0XXA Starvation, initial encounter; E78.00 Pure hypercholesterolemia, unspecified; E86.0 Dehydration; R13.10 Dysphagia, unspecified; F10.20 Alcohol dependence, uncomplicated; F41.8 Other specified anxiety disorders; K21.9 Gastro-esophageal reflux disease without esophagitis; J44.9 Chronic obstructive pulmonary disease, unspecified; K59.00 Constipation, unspecified; K11.6 Mucocele of salivary gland; I44.4 Left anterior fascicular block; R26.81 Unsteadiness on feet; R94.31 Abnormal electrocardiogram [ECG] [EKG]; I10 Essential (primary) hypertension; F17.200 Nicotine dependence, unspecified, uncomplicated; Z86.718 Personal history of other venous thrombosis and embolism; X58.XXXA Exposure to other specified factors, initial encounter
CPT/HCPCS: 0241U-QW; 36415; 71045-TC-FY; 71046-TC-FY; 80048; 80053; 80307; 81003; 82010; 82803; 82962; 83605; 83735; 83880; 84100; 84484; 85025; 85610; 85730; 87086; 87635; 93005; 93010; 93306-TC; 94010; 94640; 94761; 97116-GP; 97162-GP; 99285-25

== ENCOUNTER 2023-09-03 16:41 | Observation (INO) | payer MEDICARE, OTHER ==
[2023-09-03] MEDS ORDERED: ONDANSETRON 4 MG/2 ML VIAL ONE (17:57)
[2023-09-03] MEDS ORDERED: FAMOTIDINE 20 MG/50 ML IVPB 20 MG/50 ML MG IVPB ONE (17:57)
[2023-09-03] MEDS ORDERED: ACETAMINOPHEN INJECTION 100 ML IVPB ONE (17:57)
[2023-09-03] MEDS: ACETAMINOPHEN 1000 MG/100 ML BAG IVPB ONE (18:11)
[2023-09-03] MEDS: FAMOTIDINE 20 MG/50 ML IVPB 20 MG/50 ML MG IVPB ONE (18:11)
[2023-09-03] MEDS: SODIUM CHLORIDE 1,000 ML IV STA (18:11)
[2023-09-03] MEDS: ONDANSETRON 4 MG/2 ML VIAL IVPUSH ONE (18:12)
[2023-09-03 18:14] LABS: BASO % 0.6 % (0-2.0); EOS % 1.6 % (0-4.5); HEMATOCRIT 43.8 % (32.4-45.2); LYMPH % 30.5 % (8-40); MCHC 34.3 g/dl (32.0-36.0); MEAN CELL VOLUME 99.1 fl (80-96); MEAN PLT VOLUME 7.2 fl (7.5-11.1); MONO % 9.5 % (3.8-10.2); NEUT % 57.8 % (42.8-82.8); PLATELET COUNT 347 10^3/uL (134-434); RBC 4.42 M/mm3 (3.60-5.2); RDW 14.4 % (11.6-15.6)
[2023-09-03 18:31] LABS: POTASSIUM 4.1 mmol/L (3.5-5.1)
[2023-09-03 18:34] LABS: ALBUMIN 3.5 g/dl (3.4-5.0); CALCIUM 9.1 mg/dL (8.5-10.1)
[2023-09-03 18:35] LABS: MAGNESIUM 1.8 mg/dL (1.8-2.4)
[2023-09-03 18:37] LABS: CREATININE 0.6 mg/dL (0.55-1.3)
[2023-09-03 18:38] LABS: BILIRUBIN,TOTAL 0.8 mg/dL (0.2-1)
[2023-09-03 18:39] LABS: TOT PROT 6.2 g/dl (6.4-8.2)
[2023-09-03] MEDS: SODIUM CHLORIDE 0.9% 500 ML INFUS.BAG IV ONE (19:34)
[2023-09-03 20:19] LABS: PH,URINE 5.5 (5.0-8.0); URINE APPEARANCE CLEAR; URINE BILIRUBIN NEGATIVE (NEGATIVE); URINE COLOR YELLOW; URINE GLUCOSE (UA) NEGATIVE (NEGATIVE); URINE KETONE TRACE (NEGATIVE); URINE LEUK ESTERASE NEGATIVE (NEGATIVE); URINE NITRITE NEGATIVE (NEGATIVE); URINE PROTEIN NEGATIVE (NEGATIVE); URINE UROBILINOGEN 0.2 mg/dL (0.2-1.0)
[2023-09-03 20:22] LABS: POTASSIUM 3.4 mmol/L (3.5-5.1)
[2023-09-03 20:24] LABS: BLOOD UREA NITROGEN 8.3 mg/dL (7-18)
[2023-09-03 20:27] LABS: CREATININE 0.5 mg/dL (0.55-1.3)
[2023-09-03 22:52] LABS: CHLORIDE 103 mmol/L (98-107); POTASSIUM 3.5 mmol/L (3.5-5.1); SODIUM 134 mmol/L (136-145)
[2023-09-03 22:57] LABS: ANION GAP 8 mmol/L (4-13); CALCIUM 7.5 mg/dL (8.5-10.1); CO2 23 mmol/L (21-32)
[2023-09-03 22:58] LABS: BLOOD UREA NITROGEN 7.4 mg/dL (7-18); PHOSPHOROUS 3.6 mg/dL (2.5-4.9)
[2023-09-03 22:59] LABS: CREATININE 0.6 mg/dL (0.55-1.3)
[2023-09-03 23:05] LABS: GLUCOSE,RANDOM 122 mg/dL (74-106)
[2023-09-03 23:32] LABS: ARTERIAL BLD GAS O2 SATURATION 96.9 % (95-98); ARTERIAL BLOOD GAS BASE EXCESS -3.8 mmol/L (-2-2); ARTERIAL BLOOD GAS PO2 88.9 mmHg (80-100); ARTERIAL BLOOD GAS pH 7.397 (7.350-7.450)
[2023-09-03 23:37] LABS: ALLENS TEST POSITIVE
[2023-09-03] MEDS ORDERED: ONDANSETRON 4 MG/2 ML VIAL IVPUSH PRN (23:44)
[2023-09-04] MEDS ORDERED: SODIUM CHLORIDE 1,000 ML IV SCH (00:45)
[2023-09-04] MEDS: MELATONIN 5 MG TABLETS PO PRN (00:50)
[2023-09-04 03:33] VITALS: RESP 18; BMI 18.8
[2023-09-04 08:35] LABS: POTASSIUM 3.7 mmol/L (3.5-5.1)
[2023-09-04 08:40] LABS: CALCIUM 7.8 mg/dL (8.5-10.1)
[2023-09-04 08:41] LABS: BLOOD UREA NITROGEN 9.5 mg/dL (7-18); MAGNESIUM 1.8 mg/dL (1.8-2.4)
[2023-09-04 08:44] LABS: CREATININE 0.5 mg/dL (0.55-1.3); PHOSPHOROUS 3.7 mg/dL (2.5-4.9)
[2023-09-04 08:45] LABS: BILIRUBIN,TOTAL 0.8 mg/dL (0.2-1); TOT PROT 4.5 g/dl (6.4-8.2)
[2023-09-04 08:51] LABS: ALBUMIN 2.6 g/dl (3.4-5.0)
[2023-09-04 08:53] LABS: BASO % 0.5 % (0-2.0); EOS % 4.7 % (0-4.5); HEMATOCRIT 38.1 % (32.4-45.2); HEMOGLOBIN 12.9 GM/dL (10.7-15.3); LYMPH % 35.4 % (8-40); MCH 33.9 pg (25.7-33.7); MCHC 33.8 g/dl (32.0-36.0); MEAN CELL VOLUME 100.3 fl (80-96); MEAN PLT VOLUME 7.3 fl (7.5-11.1); MONO % 5.8 % (3.8-10.2); NEUT % 53.6 % (42.8-82.8); PLATELET COUNT 303 10^3/uL (134-434); RDW 14.4 % (11.6-15.6); WHITE BLOOD COUNT 5.5 K/mm3 (4.0-10.0)
[2023-09-04] MEDS: ACETAMINOPHEN 325 MG TABLET (FP) PO ONE (09:19)
[2023-09-04] MEDS: ENOXAPARIN NA (PORCINE) 40 MG/0.4 ML DISP.SYRIN SQ SCH (09:19)
[2023-09-04] MEDS: amLODIPine BESYLATE 5 MG TABLET (FP) PO SCH (09:19)
[2023-09-04] MEDS: ASPIRIN COATED 81 MG TABLET.EC PO SCH (09:20)
[2023-09-04] MEDS: PARoxetine HCL 30 MG TABLET PO SCH (09:41)
[2023-09-04 09:55] VITALS: BP 102/56; PULSE 95; TEMP 97.9
== END 2023-09-04 10:38 | disposition home or self-care (01) ==
LOC: JER 16:41 → JERBED 20:48 → J6S 09-04 01:54
PROVIDERS: ADMIT Internal Medicine; ATTEND Internal Medicine
PROC: 3E033NZ Introduction of Analgesics, Hypnotics, Sedatives into Peripheral Vein, Percutaneous Approach (ICD-10-PCS; principal; 2023-09-03)
PROC: 3E033GC Introduction of Other Therapeutic Substance into Peripheral Vein, Percutaneous Approach (ICD-10-PCS; 2023-09-03)
PROC: 3E033GC Introduction of Other Therapeutic Substance into Peripheral Vein, Percutaneous Approach (ICD-10-PCS; 2023-09-03)
PROC: 3E0337Z Introduction of Electrolytic and Water Balance Substance into Peripheral Vein, Percutaneous Approach (ICD-10-PCS; 2023-09-03)
DX: E86.0 Dehydration (principal); E87.1 Hypo-osmolality and hyponatremia; E88.89 Other specified metabolic disorders; I10 Essential (primary) hypertension; E78.5 Hyperlipidemia, unspecified; R11.2 Nausea with vomiting, unspecified; I65.21 Occlusion and stenosis of right carotid artery; F10.99 Alcohol use, unspecified with unspecified alcohol-induced disorder; R63.0 Anorexia; R74.01 Elevation of levels of liver transaminase levels; Z86.718 Personal history of other venous thrombosis and embolism
CPT/HCPCS: 0241U-QW; 36415; 36600; 71046-TC-FY; 76705-TC; 80048; 80053; 80307; 81003; 82010; 82570; 82803; 83690; 83735; 83935; 84100; 84133; 84300; 84484; 85025; 87086; 87186; 93005; 93010; 96361; 96365; 96375; 99285-25; G0378; J0131

== ENCOUNTER 2023-09-26 07:29 | Inpatient (IN) | payer OTHER ==
[2023-09-26 08:55] LABS: VENOUS BASE EXCESS -5.4 mmol/L (-2-2); VENOUS O2 SATURATION 57.4 % (70-80); VENOUS PCO2 33.4 mmHg (38-52); VENOUS PH 7.368 (7.310-7.410)
[2023-09-26] MEDS ORDERED: ACETAMINOPHEN INJECTION 100 ML IVPB ONE (08:58)
[2023-09-26] MEDS ORDERED: ONDANSETRON 4 MG/2 ML VIAL ONE (08:58)
[2023-09-26 09:04] LABS: BASO % 0.7 % (0-2.0); EOS % 0.3 % (0-4.5); HEMATOCRIT 44.6 % (32.4-45.2); HEMOGLOBIN 15.5 GM/dL (10.7-15.3); INR 0.91 (0.83-1.09); LYMPH % 10.9 % (8-40); MCH 34.9 pg (25.7-33.7); MCHC 34.6 g/dl (32.0-36.0); MEAN CELL VOLUME 100.6 fl (80-96); MEAN PLT VOLUME 7.2 fl (7.5-11.1); MONO % 4.3 % (3.8-10.2); NEUT % 83.8 % (42.8-82.8); PLATELET COUNT 492 10^3/uL (134-434); PROTHROMBIN TIME (PATIENT) 10.5 SEC (9.7-13.0); RBC 4.44 M/mm3 (3.60-5.2); RDW 15.8 % (11.6-15.6); WHITE BLOOD COUNT 9.9 K/mm3 (4.0-10.0)
[2023-09-26] MEDS: SODIUM CHLORIDE 0.9% 500 ML INFUS.BAG IV ONE (09:04)
[2023-09-26] MEDS: ACETAMINOPHEN 1000 MG/100 ML BAG IVPB ONE (09:05)
[2023-09-26] MEDS: ONDANSETRON 4 MG/2 ML VIAL IVPUSH ONE (09:05)
[2023-09-26 09:07] LABS: ACTIVATED PTT 39.8 SECONDS (25.2-36.5)
[2023-09-26 09:21] LABS: MAGNESIUM 1.8 mg/dL (1.8-2.4); POTASSIUM 3.7 mmol/L (3.5-5.1)
[2023-09-26 09:23] LABS: ALBUMIN 3.9 g/dl (3.4-5.0); BLOOD UREA NITROGEN 11.8 mg/dL (7-18); CALCIUM 9.2 mg/dL (8.5-10.1)
[2023-09-26 09:26] LABS: CREATININE 0.7 mg/dL (0.55-1.3)
[2023-09-26 09:28] LABS: BILIRUBIN,TOTAL 0.9 mg/dL (0.2-1); TOT PROT 7.3 g/dl (6.4-8.2)
[2023-09-26] MEDS: LACTATED RINGERS SOLUTION 1000 ML INFUS.BAG IV ONE (11:32)
[2023-09-26 11:38] LABS: PH,URINE 5.5 (5.0-8.0); URINE APPEARANCE CLOUDY; URINE BILIRUBIN NEGATIVE (NEGATIVE); URINE COLOR YELLOW; URINE GLUCOSE (UA) NEGATIVE (NEGATIVE); URINE KETONE 4+ (NEGATIVE); URINE LEUK ESTERASE NEGATIVE (NEGATIVE); URINE NITRITE NEGATIVE (NEGATIVE); URINE PROTEIN TRACE (NEGATIVE)
[2023-09-26] MEDS: ACETAMINOPHEN 325 MG TABLET (FP) PO PRN (17:09)
[2023-09-26] MEDS: SODIUM CHLORIDE 0.45% 1,000 ML IV SCH (17:46)
[2023-09-26] MEDS: ONDANSETRON 4 MG/2 ML VIAL IVPUSH PRN (17:56)
[2023-09-26] MEDS: ATORVASTATIN CA 20 MG TABLET (FP) PO SCH (21:58)
[2023-09-27] MEDS: SODIUM CHLORIDE 1,000 ML IV SCH (08:03)
[2023-09-27] MEDS: PARoxetine HCL 10 MG TABLET PO SCH (09:23)
[2023-09-27] MEDS: amLODIPine BESYLATE 5 MG TABLET (FP) PO SCH (09:23)
[2023-09-27] MEDS: ENOXAPARIN NA (PORCINE) 40 MG/0.4 ML DISP.SYRIN SQ SCH (09:23)
[2023-09-27 09:24] LABS: BASO % 0.4 % (0-2.0); EOS % 1.9 % (0-4.5); HEMATOCRIT 37.6 % (32.4-45.2); HEMOGLOBIN 12.6 GM/dL (10.7-15.3); LYMPH % 16.7 % (8-40); MCH 34.2 pg (25.7-33.7); MCHC 33.6 g/dl (32.0-36.0); MEAN CELL VOLUME 101.9 fl (80-96); MEAN PLT VOLUME 6.9 fl (7.5-11.1); MONO % 5.6 % (3.8-10.2); NEUT % 75.4 % (42.8-82.8); PLATELET COUNT 346 10^3/uL (134-434); RBC 3.69 M/mm3 (3.60-5.2); RDW 16.2 % (11.6-15.6); WHITE BLOOD COUNT 11.1 K/mm3 (4.0-10.0)
[2023-09-27 09:48] LABS: POTASSIUM 3.5 mmol/L (3.5-5.1)
[2023-09-27] MEDS ORDERED: TRIMETHOBENZAMIDE HCL 200MG/2ML INJ IM PRN (10:04)
[2023-09-27 10:08] LABS: BLOOD UREA NITROGEN 5.1 mg/dL (7-18); CALCIUM 8.4 mg/dL (8.5-10.1)
[2023-09-27 10:11] LABS: CREATININE 0.6 mg/dL (0.55-1.3)
[2023-09-27 10:13] LABS: BILIRUBIN,TOTAL 0.5 mg/dL (0.2-1); TOT PROT 5.4 g/dl (6.4-8.2)
[2023-09-27 10:15] LABS: ALBUMIN 2.9 g/dl (3.4-5.0)
[2023-09-27 19:16] VITALS: RESP 18
[2023-09-27] MEDS: BENZOCAINE/MENTH/CETYLPYRD CL 1 EACH LOZENGE MM PRN (21:44)
[2023-09-28 10:03] LABS: BASO % 0.5 % (0-2.0); EOS % 3.5 % (0-4.5); HEMATOCRIT 38.1 % (32.4-45.2); MCH 34.8 pg (25.7-33.7); MCHC 34.1 g/dl (32.0-36.0); MEAN CELL VOLUME 102.3 fl (80-96); MEAN PLT VOLUME 7.2 fl (7.5-11.1); MONO % 6.7 % (3.8-10.2); NEUT % 63.3 % (42.8-82.8); PLATELET COUNT 305 10^3/uL (134-434); RBC 3.72 M/mm3 (3.60-5.2); RDW 16.2 % (11.6-15.6); WHITE BLOOD COUNT 6.3 K/mm3 (4.0-10.0)
[2023-09-28 10:27] LABS: POTASSIUM 3.9 mmol/L (3.5-5.1)
[2023-09-28 10:33] LABS: ALBUMIN 2.9 g/dl (3.4-5.0); BLOOD UREA NITROGEN 3.1 mg/dL (7-18); CALCIUM 8.5 mg/dL (8.5-10.1)
[2023-09-28 10:35] LABS: CREATININE 0.4 mg/dL (0.55-1.3)
[2023-09-28 10:37] LABS: BILIRUBIN,TOTAL 0.4 mg/dL (0.2-1)
[2023-09-28 10:39] LABS: TOT PROT 5.5 g/dl (6.4-8.2)
[2023-09-28 11:32] VITALS: BP 136/66; PULSE 84; TEMP 98.2
[2023-09-28] MEDS: MULTIVITAMINS (DAILY MVI) TABLET (FP) PO SCH (13:30)
[2023-09-28] MEDS: METOCLOPRAMIDE HCL 10 MG TABLET (FP) PO ONE (15:15)
== END 2023-09-28 15:22 | disposition home or self-care (01) | DRG 897 ==
LOC: JER 07:29 → JERBED 11:18 → J5S 13:18
PROVIDERS: ADMIT Internal Medicine
DX: F10.10 Alcohol abuse, uncomplicated (principal); E87.1 Hypo-osmolality and hyponatremia; E87.20 Acidosis, unspecified; J44.9 Chronic obstructive pulmonary disease, unspecified; E78.5 Hyperlipidemia, unspecified; I73.9 Peripheral vascular disease, unspecified; G47.00 Insomnia, unspecified; R11.2 Nausea with vomiting, unspecified; R01.1 Cardiac murmur, unspecified; R51.9 Headache, unspecified; F17.210 Nicotine dependence, cigarettes, uncomplicated; R42 Dizziness and giddiness; E86.0 Dehydration; F41.9 Anxiety disorder, unspecified; K11.8 Other diseases of salivary glands; R62.7 Adult failure to thrive; Z68.20 Body mass index [BMI] 20.0-20.9, adult
CPT/HCPCS: 0241U-QW; 36415; 70450-TC; 71045-TC-FY; 80053; 80307; 81003; 82010; 82803; 83036; 83605; 83690; 83735; 84484; 85025; 85610; 85730; 86850; 86900; 86901; 87086; 93005; 93010; 93306-TC; 99285-25; J0131

== ENCOUNTER 2024-07-13 08:50 | Emergency (ER) | payer OTHER ==
[2024-07-13 09:01] VITALS: BMI 19.1
[2024-07-13] MEDS ORDERED: ACETAMINOPHEN INJECTION 100 ML ONE (09:54)
[2024-07-13] MEDS ORDERED: FAMOTIDINE 20 MG/50 ML IVPB 20 MG/50 ML MG IVPB ONE (09:55)
[2024-07-13] MEDS ORDERED: MAG HYDROX/AL HYDROX/SIMETH 30 ML UNIT-DOSE CUP ONE (09:55)
[2024-07-13] MEDS: MAG HYDROX/AL HYDROX/SIMETH 30 ML UNIT-DOSE CUP PO ONE (10:00)
[2024-07-13] MEDS: ACETAMINOPHEN 1000 MG/100 ML BAG IVPB ONE (10:10)
[2024-07-13] MEDS: FAMOTIDINE 20 MG/50 ML IVPB 20 MG/50 ML MG IVPB ONE (10:10)
[2024-07-13 10:30] LABS: ABSOLUTE IMMATURE GRANULOCYTES 0.06 x10^3/uL (0.0-0.031); BASOPHILS # 0.05 x10^3/uL (0.01-0.08); EOSINOPHIL % 0.5 % (0.7-5.8); EOSINOPHILS # 0.05 x10^3/uL (0.04-0.36); HEMATOCRIT 43.6 % (34.1-44.9); MCHC 34.4 g/dl (32.2-35.5); MEAN PLT VOLUME 9.7 fl (9.4-12.3); MONOCYTE # 0.86 x10^3/uL (0.24-0.86); MONOCYTE % 7.8 % (4.7-12.5); PLATELET COUNT 311 x10^3/uL (182-369); RDW 15.6 % (12.4-16.4)
[2024-07-13] MEDS: LACTATED RINGERS SOLUTION 1000 ML INFUS.BAG IV ONE (10:40)
[2024-07-13 10:51] LABS: POTASSIUM 5.1 mmol/L (3.5-5.1)
[2024-07-13 10:52] LABS: MAGNESIUM 1.8 mg/dL (1.8-2.4)
[2024-07-13 10:53] LABS: CALCIUM 8.9 mg/dL (8.5-10.1)
[2024-07-13 10:54] LABS: ALBUMIN 3.4 g/dl (3.4-5.0); BLOOD UREA NITROGEN 28.3 mg/dL (7-18)
[2024-07-13 10:57] LABS: CREATININE 0.6 mg/dL (0.55-1.3)
[2024-07-13 10:58] LABS: BILIRUBIN,TOTAL 0.5 mg/dL (0.2-1)
[2024-07-13 10:59] LABS: TOT PROT 6.6 g/dl (6.4-8.2)
[2024-07-13 12:10] LABS: EPI CELLS >36 /uL (0-25.1); HYALINE CASTS 2 /uL (0-3.1); URINE APPEARANCE CLEAR; URINE BACTERIA 406 /uL (0-1359); URINE BILIRUBIN NEGATIVE (NEGATIVE); URINE COLOR YELLOW; URINE GLUCOSE (UA) NEGATIVE (NEGATIVE); URINE KETONE 1+ (NEGATIVE); URINE LEUK ESTERASE NEGATIVE (NEGATIVE); URINE NITRITE NEGATIVE (NEGATIVE); URINE PROTEIN TRACE (NEGATIVE); URINE WBC 23 /uL (0-25.8)
[2024-07-13 12:26] LABS: URINE RBC 25 /uL (0-23.9); YEAST NONE SEEN (NEGATIVE)
[2024-07-13 14:03] VITALS: RESP 20
[2024-07-13 16:58] VITALS: BP 141/74; PULSE 82; TEMP 98.3
== END 2024-07-13 16:55 | disposition home or self-care (01) ==
LOC: JER 08:50
PROC: 3E033GC Introduction of Other Therapeutic Substance into Peripheral Vein, Percutaneous Approach (ICD-10-PCS; principal; 2024-07-13)
PROC: 3E033NZ Introduction of Analgesics, Hypnotics, Sedatives into Peripheral Vein, Percutaneous Approach (ICD-10-PCS; 2024-07-13)
DX: R11.2 Nausea with vomiting, unspecified (principal); R53.1 Weakness; R00.0 Tachycardia, unspecified
CPT/HCPCS: 0241U-QW; 36415; 71045-TC-FY; 80053; 81003; 83690; 83735; 84439; 84443; 84484; 85025; 87086; 93005; 93010; 99285-25; J0131